=== PATIENT | female | born 1950 | race Asian ===

== ENCOUNTER 2017-05-31 19:53 | Inpatient (IN) | payer OTHER, MEDICARE ==
[~2017-05-31] VITALS: Ht 162.6 cm; Wt 53.5 kg
[2017-05-31] MEDS ORDERED: D-ME118S12 GT (20:11)
[2017-05-31] MEDS ORDERED: LACT10SO GT (20:11)
[2017-05-31] MEDS ORDERED: FOLI1TAB16 GT (20:11)
[2017-05-31] MEDS ORDERED: PRED5TAB48 GT (20:11)
[2017-05-31] MEDS ORDERED: MIDO10TA GT (20:11)
[2017-05-31] MEDS ORDERED: SILD100T GT (20:11)
[2017-05-31] MEDS ORDERED: LACT1TAB20 GT (20:11)
[2017-05-31] MEDS ORDERED: ONDA4TAB10 GT (20:11)
[2017-05-31] MEDS ORDERED: LEVO150T8 GT (20:11)
[2017-05-31] MEDS ORDERED: ACET325T80 GT (20:11)
[2017-05-31] MEDS ORDERED: VALA100026 GT (20:11)
[2017-05-31] MEDS ORDERED: METO-295 GT (20:11)
[2017-05-31] MEDS ORDERED: MIDO5TAB GT (20:11)
[2017-05-31 20:40] LABS: BASOPHILS # (AUTO) 0.3 /CMM (0.0-0.2); BASOPHILS % (AUTO) 1.8 % (0.0-2.0); EOSINOPHILS % (AUTO) 0.3 % (0.0-6.0); HEMATOCRIT 22 % (33-45); HEMOGLOBIN 7.1 g/dL (11.5-14.8); LYMPHOCYTES # (AUTO) 1.1 /CMM (0.8-4.8); LYMPHOCYTES % (AUTO) 7.2 % (20.0-44.0); MEAN CORPUSCULAR HEMOGLOBIN 31 PG (26.0-33.0); MEAN CORPUSCULAR HGB CONC 33 g/dl (31.0-36.0); MEAN CORPUSCULAR VOLUME 95 fL (82-100); MONOCYTES # (AUTO) 1.9 /CMM (0.1-1.30); MONOCYTES % (AUTO) 11.9 % (2.0-12.0); NEUTROPHILS # (AUTO) 12.6 /CMM (1.8-8.9); NEUTROPHILS % (AUTO) 78.8 % (43.0-81.0); PLATELET COUNT (AUTO) 242 /CMM (150-450); RDW COEFFICIENT OF VARIATION 19.4 (11.5-15.0); WHITE BLOOD COUNT (AUTO) 15.9 K/uL (4.3-11.0)
[2017-05-31 21:12] LABS: TROPONIN I 0.06 ng/mL (0.00-0.056)
[2017-05-31 21:27] LABS: CALCIUM, SERUM 9.1 mg/dL (8.5-10.1); CREATININE 2.5 mg/dL (0.6-1.3); POTASSIUM 4.8 mmol/L (3.5-5.1)
[2017-05-31 21:33] LABS: ALBUMIN 3.1 g/dL (3.4-5.0); BILIRUBIN,DIRECT 0.1 mg/dL (0.0-0.2); BILIRUBIN,TOTAL 0.3 mg/dL (0.2-1.0); TOTAL PROTEIN, SERUM 7.9 g/dL (6.4-8.2)
[2017-05-31 21:59] LABS: INR 1.08 (0.87-1.13)
[2017-05-31] MEDS ORDERED: ZOLPIDEM TARTRATE 5 MG TABLET PO PRN (22:30)
[2017-05-31] MEDS ORDERED: Z GUARD REMEDY 2 OZ OINT TP PRN (22:30)
[2017-05-31] MEDS ORDERED: MAGNESIUM HYDROXIDE 30 ML UDC PO PRN (22:30)
[2017-05-31] MEDS ORDERED: HYDROCODONE/APAP 5/325MG 1 EACH TABLET PO PRN (22:30)
[2017-05-31] MEDS ORDERED: ONDANSETRON HCL/PF 4 MG/2 ML VIAL IVP PRN (22:30)
[2017-05-31] MEDS ORDERED: MAG HYDROX/AL HYDROX/SIMETH 30 ML UDC PO PRN (22:30)
[2017-05-31] MEDS ORDERED: LACT-96 GT (23:29)
[2017-05-31] MEDS ORDERED: INSU100I4 SQ (23:29)
[2017-05-31 23:47] VITALS: BP 105/63
[2017-06-01] VITALS (11 sets, daily range): BP systolic 91–118; BP diastolic 51–57
[2017-06-01] MEDS: BLOOD SUGAR DIAGNOSTIC 1 EACH STRIP IN SCH ×4 (00:20→18:13)
[2017-06-01] MEDS: METOCLOPRAMIDE HCL 10 MG TABLET GT SCH ×4 (00:23→21:32)
[2017-06-01] MEDS ORDERED: DEXTROSE 50%-WATER 50 ML DISP.SYRIN IV PRN (00:30)
[2017-06-01] MEDS: MIDODRINE HCL (5MG) 5 MG TABLET GT SCH ×3 (05:24→21:32)
[2017-06-01] MEDS ORDERED: BLOOD SUGAR DIAGNOSTIC 1 EACH STRIP IN SCH (06:00)
[2017-06-01 06:33] LABS: BASOPHILS % (AUTO) 0.2 % (0.0-2.0); EOSINOPHILS # (AUTO) 0.1 /CMM (0.0-0.7); EOSINOPHILS % (AUTO) 0.4 % (0.0-6.0); HEMATOCRIT 24 % (33-45); HEMOGLOBIN 7.7 g/dL (11.5-14.8); LYMPHOCYTES # (AUTO) 2.6 /CMM (0.8-4.8); LYMPHOCYTES % (AUTO) 15.3 % (20.0-44.0); MEAN CORPUSCULAR HEMOGLOBIN 31 PG (26.0-33.0); MEAN CORPUSCULAR HGB CONC 33 g/dl (31.0-36.0); MEAN CORPUSCULAR VOLUME 95 fL (82-100); MONOCYTES % (AUTO) 12.1 % (2.0-12.0); PLATELET COUNT (AUTO) 227 /CMM (150-450); RDW COEFFICIENT OF VARIATION 20.2 (11.5-15.0); WHITE BLOOD COUNT (AUTO) 16.6 K/uL (4.3-11.0)
[2017-06-01 06:51] LABS: CALCIUM, SERUM 8.9 mg/dL (8.5-10.1); MAGNESIUM 2.5 mg/dL (1.8-2.4); PHOSPHORUS 7.2 mg/dL (2.5-4.9)
[2017-06-01 06:55] LABS: THYROID STIMULATING HORMONE 3.872 uIU/mL (0.358-3.74)
[2017-06-01 07:18] LABS: LYMPHOCYTES % (MANUAL) 4 % (16-48); MONOCYTES % (MANUAL) 18 % (0-11.0); NEUTROPHILS % (MANUAL) 78 (42-76)
[2017-06-01] MEDS ORDERED: LEVOTHYROXINE SODIUM 150 MCG TABLET GT SCH (09:00)
[2017-06-01] MEDS: predniSONE 5 MG TABLET PO SCH ×2 (09:20→21:33)
[2017-06-01] MEDS: LEVOTHYROXINE SODIUM 75 MCG TABLET GT SCH ×2 (09:20→21:32)
[2017-06-01] MEDS: VALACYCLOVIR HCL 500 MG TABLET PO SCH (09:21)
[2017-06-01] MEDS: SILDENAFIL CITRATE 20 MG TABLET PO SCH (09:21)
[2017-06-01] MEDS: FOLIC ACID 1 MG TABLET GT SCH (09:21)
[2017-06-01 13:43] LABS: RETICULOCYTE COUNT 3.6 % (0.6-2.5)
[2017-06-01] MEDS ORDERED: CEFTRIAXONE 1 G in IV D5W 50 ML IV SCH (16:30)
[2017-06-01 16:54] LABS: OCCULT BLOOD STOOL POSITIVE (NEGATIVE)
[2017-06-01] MEDS: PANTOPRAZOLE 40 MG VIAL IV SCH (18:13)
[2017-06-01] MEDS: METRONIDAZOLE 500MG/ NS 100ML 500 MG in PREMIX 1 EA IV SCH (18:49)
[2017-06-02] VITALS (7 sets, daily range): BP systolic 99–139; BP diastolic 45–70
[2017-06-02] MEDS: METRONIDAZOLE 500MG/ NS 100ML 500 MG in PREMIX 1 EA IV SCH ×2 (00:36→05:03)
[2017-06-02] MEDS: BLOOD SUGAR DIAGNOSTIC 1 EACH STRIP IN SCH ×4 (00:39→17:40)
[2017-06-02] MEDS: INSULIN REGULAR, HUMAN 100 UNIT/ML 3 ML VIAL SQ PRN ×2 (00:39→05:02)
[2017-06-02] MEDS: METOCLOPRAMIDE HCL 10 MG TABLET GT SCH ×3 (05:01→21:35)
[2017-06-02] MEDS: MIDODRINE HCL (5MG) 5 MG TABLET GT SCH ×3 (05:01→21:35)
[2017-06-02 07:47] LABS: TROPONIN I 0.066 ng/mL (0.00-0.056)
[2017-06-02 07:54] LABS: BILIRUBIN,TOTAL 0.4 mg/dL (0.2-1.0); CALCIUM, SERUM 8.7 mg/dL (8.5-10.1); MAGNESIUM 2.6 mg/dL (1.8-2.4); TOTAL PROTEIN, SERUM 7.7 g/dL (6.4-8.2)
[2017-06-02 08:03] LABS: BASOPHILS % (AUTO) 0.2 % (0.0-2.0); EOSINOPHILS % (AUTO) 0.1 % (0.0-6.0); HEMATOCRIT 22 % (33-45); HEMOGLOBIN 7.1 g/dL (11.5-14.8); LYMPHOCYTES # (AUTO) 1.5 /CMM (0.8-4.8); LYMPHOCYTES % (AUTO) 8.6 % (20.0-44.0); MEAN CORPUSCULAR HEMOGLOBIN 31 PG (26.0-33.0); MEAN CORPUSCULAR HGB CONC 32 g/dl (31.0-36.0); MEAN CORPUSCULAR VOLUME 95 fL (82-100); MONOCYTES # (AUTO) 1.6 /CMM (0.1-1.30); MONOCYTES % (AUTO) 9.3 % (2.0-12.0); NEUTROPHILS # (AUTO) 13.9 /CMM (1.8-8.9); NEUTROPHILS % (AUTO) 81.8 % (43.0-81.0); PLATELET COUNT (AUTO) 233 /CMM (150-450); RDW COEFFICIENT OF VARIATION 19.4 (11.5-15.0); RED BLOOD CELL COUNT(AUTO) 2.33 MIL/uL (4.0-5.2)
[2017-06-02 08:07] LABS: POTASSIUM 6.3 mmol/L (3.5-5.1)
[2017-06-02 08:08] LABS: PHOSPHORUS 9.4 mg/dL (2.5-4.9)
[2017-06-02] MEDS: VALACYCLOVIR HCL 500 MG TABLET PO SCH (08:27)
[2017-06-02] MEDS: FOLIC ACID 1 MG TABLET GT SCH (08:28)
[2017-06-02] MEDS: SILDENAFIL CITRATE 20 MG TABLET PO SCH (08:28)
[2017-06-02] MEDS: LEVOTHYROXINE SODIUM 75 MCG TABLET GT SCH ×2 (08:28→21:35)
[2017-06-02] MEDS: PANTOPRAZOLE 40 MG VIAL IV SCH ×2 (08:28→17:26)
[2017-06-02] MEDS: predniSONE 5 MG TABLET PO SCH ×2 (08:28→21:35)
[2017-06-02] MEDS ORDERED: SODIUM POLYSTYRENE SULFONATE 15 G/60 ML BOTTLE GT ONE (08:30)
[2017-06-02 10:01] LABS: LYMPHOCYTES % (MANUAL) 3 % (16-48); MONOCYTES % (MANUAL) 9 % (0-11.0); NEUTROPHILS % (MANUAL) 88 (42-76)
[2017-06-02] MEDS ORDERED: FEE PK DOSING 1 MIN EA MC ONE (11:40)
[2017-06-02] MEDS: MEROPENEM 500 MG in IV NS 0.9% 50 ML IV SCH (12:39)
[2017-06-02] MEDS ORDERED: VANCOMYCIN 1 GM in IV NS 0.9% 250 ML IV ONE (14:00)
[2017-06-02 22:03] LABS: ABG BASE EXCESS 2.6 mmol/L; ABG OXYGEN SATURATION 98.8 % (92.0-98.5); ABG PCO2 84.5 mmHg (35.0-45.0); ABG PH 7.194 (7.350-7.450); ABG PO2 201.4 mmHg (75.0-100.0); AaDO2 427.1 mmHg; COHb 0.1 % (0.5-1.5); O2Hb 97.7 % (94.0-97.0); SITE, ABG Right Radial; VENT MODE, BG NRB MASK
[2017-06-03] VITALS (13 sets, daily range): BP systolic 93–114; BP diastolic 42–63
[2017-06-03] MEDS: MEROPENEM 500 MG in IV NS 0.9% 50 ML IV SCH ×2 (00:35→12:14)
[2017-06-03] MEDS: BLOOD SUGAR DIAGNOSTIC 1 EACH STRIP IN SCH ×4 (00:35→17:25)
[2017-06-03] MEDS: METOCLOPRAMIDE HCL 10 MG TABLET GT SCH ×3 (05:21→20:24)
[2017-06-03] MEDS: MIDODRINE HCL (5MG) 5 MG TABLET GT SCH ×3 (05:25→20:25)
[2017-06-03 07:21] LABS: CREATININE 3.2 mg/dL (0.6-1.3); POTASSIUM 3.6 mmol/L (3.5-5.1)
[2017-06-03] MEDS: LEVOTHYROXINE SODIUM 75 MCG TABLET GT SCH ×2 (08:14→20:25)
[2017-06-03] MEDS: predniSONE 5 MG TABLET PO SCH ×2 (08:14→20:24)
[2017-06-03] MEDS: SILDENAFIL CITRATE 20 MG TABLET PO SCH (08:14)
[2017-06-03] MEDS: VALACYCLOVIR HCL 500 MG TABLET PO SCH (08:14)
[2017-06-03] MEDS: FOLIC ACID 1 MG TABLET GT SCH (08:14)
[2017-06-03] MEDS: PANTOPRAZOLE 40 MG VIAL IV SCH ×2 (08:16→16:33)
[2017-06-03 09:36] LABS: ABG BASE EXCESS 4.4 mmol/L; ABG OXYGEN SATURATION 98.7 % (92.0-98.5); ABG PCO2 51.4 mmHg (35.0-45.0); ABG PH 7.383 (7.350-7.450); ABG PO2 165.2 mmHg (75.0-100.0); AaDO2 60.9 mmHg; COHb 0.5 % (0.5-1.5); MetHb 0.6 % (0.0-1.5); O2Hb 97.6 % (94.0-97.0); PEEP,BG 0 cm H2O; SITE, ABG Right Radial; VENT MODE, BG AC 10 500 +0 40%; VT, ABG 500 mL
[2017-06-03 11:01] LABS: BASOPHILS % (AUTO) 0.1 % (0.0-2.0); HEMATOCRIT 22 % (33-45); LYMPHOCYTES # (AUTO) 0.8 /CMM (0.8-4.8); LYMPHOCYTES % (AUTO) 4.1 % (20.0-44.0); MEAN CORPUSCULAR HEMOGLOBIN 31 PG (26.0-33.0); MEAN CORPUSCULAR HGB CONC 32 g/dl (31.0-36.0); MEAN CORPUSCULAR VOLUME 95 fL (82-100); MONOCYTES # (AUTO) 1.2 /CMM (0.1-1.30); MONOCYTES % (AUTO) 6.2 % (2.0-12.0); NEUTROPHILS # (AUTO) 16.9 /CMM (1.8-8.9); NEUTROPHILS % (AUTO) 89.6 % (43.0-81.0); PLATELET COUNT (AUTO) 199 /CMM (150-450); RDW COEFFICIENT OF VARIATION 20.3 (11.5-15.0); RED BLOOD CELL COUNT(AUTO) 2.27 MIL/uL (4.0-5.2); WHITE BLOOD COUNT (AUTO) 18.9 K/uL (4.3-11.0)
[2017-06-03 11:37] LABS: HEMOGLOBIN 6.9 g/dL (11.5-14.8)
[2017-06-03 15:11] LABS: BAND % (MANUAL) 6 % (0.0-5.0); LYMPHOCYTES % (MANUAL) 12 % (16-48); MONOCYTES % (MANUAL) 6 % (0-11.0); NEUTROPHILS % (MANUAL) 76 (42-76)
[2017-06-04] VITALS: BP 96/43
[2017-06-04] MEDS: MEROPENEM 500 MG in IV NS 0.9% 50 ML IV SCH ×2 (01:43→13:01)
[2017-06-04 04:00] VITALS: BP 101/58
[2017-06-04] MEDS: METOCLOPRAMIDE HCL 10 MG TABLET GT SCH ×2 (05:46→13:01)
[2017-06-04] MEDS: INSULIN REGULAR, HUMAN 100 UNIT/ML 3 ML VIAL SQ PRN (05:47)
[2017-06-04] MEDS: MIDODRINE HCL (5MG) 5 MG TABLET GT SCH ×3 (05:47→21:21)
[2017-06-04] MEDS: BLOOD SUGAR DIAGNOSTIC 1 EACH STRIP IN SCH ×4 (05:47→16:27)
[2017-06-04 07:32] LABS: HEMATOCRIT 24 % (33-45); HEMOGLOBIN 7.8 g/dL (11.5-14.8); LYMPHOCYTES % (AUTO) 7.1 % (20.0-44.0); MEAN CORPUSCULAR HEMOGLOBIN 31 PG (26.0-33.0); MEAN CORPUSCULAR HGB CONC 33 g/dl (31.0-36.0); MEAN CORPUSCULAR VOLUME 93 fL (82-100); MONOCYTES # (AUTO) 1.2 /CMM (0.1-1.30); MONOCYTES % (AUTO) 8.8 % (2.0-12.0); NEUTROPHILS # (AUTO) 11.5 /CMM (1.8-8.9); NEUTROPHILS % (AUTO) 84.1 % (43.0-81.0); PLATELET COUNT (AUTO) 181 /CMM (150-450); RDW COEFFICIENT OF VARIATION 20.2 (11.5-15.0); RED BLOOD CELL COUNT(AUTO) 2.55 MIL/uL (4.0-5.2); WHITE BLOOD COUNT (AUTO) 13.7 K/uL (4.3-11.0)
[2017-06-04 07:54] LABS: CALCIUM, SERUM 7.2 mg/dL (8.5-10.1); POTASSIUM 3.3 mmol/L (3.5-5.1)
[2017-06-04 08:00] VITALS: BP 107/61
[2017-06-04] MEDS: PANTOPRAZOLE 40 MG VIAL IV SCH ×2 (08:24→16:24)
[2017-06-04] MEDS: SILDENAFIL CITRATE 20 MG TABLET PO SCH (08:25)
[2017-06-04] MEDS: predniSONE 5 MG TABLET PO SCH ×2 (08:25→21:22)
[2017-06-04] MEDS: LEVOTHYROXINE SODIUM 75 MCG TABLET GT SCH ×2 (08:25→21:22)
[2017-06-04] MEDS: VALACYCLOVIR HCL 500 MG TABLET PO SCH (08:25)
[2017-06-04] MEDS: FOLIC ACID 1 MG TABLET GT SCH (08:25)
[2017-06-04] MEDS: POTASSIUM CL. PREMIX PERIPHER. 50 ML IV SCH ×2 (10:13→11:27)
[2017-06-04] MEDS ORDERED: METOCLOPRAMIDE HCL 10 MG/2 ML VIAL IV SCH (10:30)
[2017-06-04 12:00] VITALS: BP 100/50
[2017-06-04] MEDS: METOCLOPRAMIDE HCL 10 MG/2 ML VIAL IV SCH ×2 (14:30→20:30)
[2017-06-04] MEDS ORDERED: GLYTROL 1,000 ML BAG GT PRN (15:00)
[2017-06-04 16:00] VITALS: BP 100/48
[2017-06-04 20:00] VITALS: BP 106/49
[2017-06-05] VITALS (7 sets, daily range): BP systolic 94–115; BP diastolic 44–65
[2017-06-05] MEDS: INSULIN REGULAR, HUMAN 100 UNIT/ML 3 ML VIAL SQ PRN ×2 (00:17→06:34)
[2017-06-05] MEDS: MEROPENEM 500 MG in IV NS 0.9% 50 ML IV SCH ×2 (00:39→13:21)
[2017-06-05] MEDS: METOCLOPRAMIDE HCL 10 MG/2 ML VIAL IV SCH ×4 (02:08→22:00)
[2017-06-05] MEDS: MIDODRINE HCL (5MG) 5 MG TABLET GT SCH ×3 (04:29→22:01)
[2017-06-05] MEDS: BLOOD SUGAR DIAGNOSTIC 1 EACH STRIP IN SCH ×4 (06:00→17:19)
[2017-06-05 07:14] LABS: EOSINOPHILS % (AUTO) 0.2 % (0.0-6.0); HEMATOCRIT 25 % (33-45); HEMOGLOBIN 8.1 g/dL (11.5-14.8); LYMPHOCYTES # (AUTO) 0.9 /CMM (0.8-4.8); LYMPHOCYTES % (AUTO) 7.5 % (20.0-44.0); MEAN CORPUSCULAR HEMOGLOBIN 31 PG (26.0-33.0); MEAN CORPUSCULAR HGB CONC 33 g/dl (31.0-36.0); MEAN CORPUSCULAR VOLUME 94 fL (82-100); MONOCYTES # (AUTO) 1.1 /CMM (0.1-1.30); MONOCYTES % (AUTO) 8.7 % (2.0-12.0); NEUTROPHILS # (AUTO) 10.2 /CMM (1.8-8.9); NEUTROPHILS % (AUTO) 83.6 % (43.0-81.0); PLATELET COUNT (AUTO) 165 /CMM (150-450); RED BLOOD CELL COUNT(AUTO) 2.61 MIL/uL (4.0-5.2); WHITE BLOOD COUNT (AUTO) 12.3 K/uL (4.3-11.0)
[2017-06-05 07:24] LABS: INR 1.47 (0.87-1.13)
[2017-06-05 07:45] LABS: CALCIUM, SERUM 8.4 mg/dL (8.5-10.1); CREATININE 2.5 mg/dL (0.6-1.3); MAGNESIUM 2.2 mg/dL (1.8-2.4); PHOSPHORUS 4.8 mg/dL (2.5-4.9); POTASSIUM 4.5 mmol/L (3.5-5.1)
[2017-06-05] MEDS: VALACYCLOVIR HCL 500 MG TABLET PO SCH (08:13)
[2017-06-05] MEDS: PANTOPRAZOLE 40 MG VIAL IV SCH ×2 (08:13→17:16)
[2017-06-05] MEDS: LEVOTHYROXINE SODIUM 75 MCG TABLET GT SCH ×2 (08:13→22:01)
[2017-06-05] MEDS: FOLIC ACID 1 MG TABLET GT SCH (08:13)
[2017-06-05] MEDS: SILDENAFIL CITRATE 20 MG TABLET PO SCH (08:13)
[2017-06-05] MEDS: predniSONE 5 MG TABLET PO SCH ×2 (08:13→22:01)
[2017-06-05] MEDS: RENAL NOVASOURCE 1,000 ML BOTTLE GT PRN (13:22)
[2017-06-06] VITALS: BP 113/61
[2017-06-06] MEDS: MEROPENEM 500 MG in IV NS 0.9% 50 ML IV SCH ×2 (00:57→12:03)
[2017-06-06] MEDS: BLOOD SUGAR DIAGNOSTIC 1 EACH STRIP IN SCH ×5 (00:57→23:50)
[2017-06-06] MEDS: METOCLOPRAMIDE HCL 10 MG/2 ML VIAL IV SCH ×4 (03:42→23:50)
[2017-06-06 04:00] VITALS: BP 105/59
[2017-06-06] MEDS: MIDODRINE HCL (5MG) 5 MG TABLET GT SCH ×3 (05:55→20:45)
[2017-06-06] MEDS: INSULIN REGULAR, HUMAN 100 UNIT/ML 3 ML VIAL SQ PRN ×4 (05:59→23:58)
[2017-06-06 08:00] VITALS: BP 111/61
[2017-06-06 08:22] LABS: BASOPHILS % (AUTO) 0.1 % (0.0-2.0); EOSINOPHILS % (AUTO) 0.3 % (0.0-6.0); HEMATOCRIT 24 % (33-45); HEMOGLOBIN 7.9 g/dL (11.5-14.8); LYMPHOCYTES # (AUTO) 1.2 /CMM (0.8-4.8); LYMPHOCYTES % (AUTO) 8.6 % (20.0-44.0); MEAN CORPUSCULAR HEMOGLOBIN 31 PG (26.0-33.0); MEAN CORPUSCULAR HGB CONC 33 g/dl (31.0-36.0); MEAN CORPUSCULAR VOLUME 94 fL (82-100); MONOCYTES # (AUTO) 1.3 /CMM (0.1-1.30); MONOCYTES % (AUTO) 9.3 % (2.0-12.0); NEUTROPHILS # (AUTO) 11.2 /CMM (1.8-8.9); NEUTROPHILS % (AUTO) 81.7 % (43.0-81.0); PLATELET COUNT (AUTO) 135 /CMM (150-450); RDW COEFFICIENT OF VARIATION 20.7 (11.5-15.0); RED BLOOD CELL COUNT(AUTO) 2.57 MIL/uL (4.0-5.2); WHITE BLOOD COUNT (AUTO) 13.7 K/uL (4.3-11.0)
[2017-06-06 08:57] LABS: CREATININE 3.5 mg/dL (0.6-1.3); PHOSPHORUS 5.6 mg/dL (2.5-4.9); POTASSIUM 4.4 mmol/L (3.5-5.1)
[2017-06-06] MEDS: PANTOPRAZOLE 40 MG VIAL IV SCH ×2 (10:05→17:17)
[2017-06-06] MEDS: SILDENAFIL CITRATE 20 MG TABLET PO SCH (10:06)
[2017-06-06] MEDS: FOLIC ACID 1 MG TABLET GT SCH (10:06)
[2017-06-06] MEDS: LEVOTHYROXINE SODIUM 75 MCG TABLET GT SCH ×2 (10:06→20:45)
[2017-06-06] MEDS: predniSONE 5 MG TABLET PO SCH ×2 (10:06→20:45)
[2017-06-06] MEDS: VALACYCLOVIR HCL 500 MG TABLET PO SCH (10:06)
[2017-06-06] MEDS: VANCOMYCIN 500 MG in IV NS 0.9% 100 ML IV PRN (10:38)
[2017-06-06 11:35] LABS: ABG BASE EXCESS 2.1 mmol/L; ABG OXYGEN SATURATION 97.1 % (92.0-98.5); ABG PCO2 46.5 mmHg (35.0-45.0); ABG PO2 107.5 mmHg (75.0-100.0); AaDO2 51.8 mmHg; COHb 0.3 % (0.5-1.5); MetHb 0.5 % (0.0-1.5); O2Hb 96.3 % (94.0-97.0); SITE, ABG Left Radial; VENT MODE, BG CPAP PS 12
[2017-06-06 12:00] VITALS: BP 113/58
[2017-06-06] MEDS ORDERED: MAGNESIUM CITRATE 296 ML BOTTLE PO ONE ×2 (15:00→17:30)
[2017-06-06] MEDS ORDERED: NA PHOS,M-B/NA PHOS,DI-BA 1 EA ENEMA RC PRN (15:00)
[2017-06-06 16:00] VITALS: BP 103/50
[2017-06-06] MEDS ORDERED: PEG 3350/NA SULF,BICARB,CL/KCL 4,000 ML BOTTLE PO ONE (16:00)
[2017-06-06 20:00] VITALS: BP 97/49
[2017-06-07] VITALS (7 sets, daily range): BP systolic 107–138; BP diastolic 59–70
[2017-06-07] MEDS: MEROPENEM 500 MG in IV NS 0.9% 50 ML IV SCH ×2 (00:02→12:46)
[2017-06-07] MEDS: MIDODRINE HCL (5MG) 5 MG TABLET GT SCH ×3 (05:00→20:39)
[2017-06-07] MEDS: BLOOD SUGAR DIAGNOSTIC 1 EACH STRIP IN SCH ×4 (06:43→23:05)
[2017-06-07] MEDS: RENAL NOVASOURCE 1,000 ML BOTTLE GT PRN (06:44)
[2017-06-07 08:13] LABS: EOSINOPHILS # (AUTO) 0.1 /CMM (0.0-0.7); EOSINOPHILS % (AUTO) 0.4 % (0.0-6.0); HEMATOCRIT 27 % (33-45); HEMOGLOBIN 8.9 g/dL (11.5-14.8); LYMPHOCYTES % (AUTO) 5.9 % (20.0-44.0); MEAN CORPUSCULAR HEMOGLOBIN 32 PG (26.0-33.0); MEAN CORPUSCULAR HGB CONC 33 g/dl (31.0-36.0); MEAN CORPUSCULAR VOLUME 96 fL (82-100); MONOCYTES # (AUTO) 1.3 /CMM (0.1-1.30); MONOCYTES % (AUTO) 7.3 % (2.0-12.0); NEUTROPHILS # (AUTO) 14.7 /CMM (1.8-8.9); NEUTROPHILS % (AUTO) 86.4 % (43.0-81.0); PLATELET COUNT (AUTO) 112 /CMM (150-450); RDW COEFFICIENT OF VARIATION 21.6 (11.5-15.0); RED BLOOD CELL COUNT(AUTO) 2.84 MIL/uL (4.0-5.2); WHITE BLOOD COUNT (AUTO) 17.1 K/uL (4.3-11.0)
[2017-06-07 08:31] LABS: CALCIUM, SERUM 8.1 mg/dL (8.5-10.1); CREATININE 2.8 mg/dL (0.6-1.3); PHOSPHORUS 5.2 mg/dL (2.5-4.9); POTASSIUM 4.3 mmol/L (3.5-5.1)
[2017-06-07] MEDS: METOCLOPRAMIDE HCL 10 MG/2 ML VIAL IV SCH (08:49)
[2017-06-07] MEDS: PANTOPRAZOLE 40 MG VIAL IV SCH ×2 (08:50→16:43)
[2017-06-07] MEDS: VALACYCLOVIR HCL 500 MG TABLET PO SCH (08:50)
[2017-06-07] MEDS: FOLIC ACID 1 MG TABLET GT SCH (08:50)
[2017-06-07] MEDS: SILDENAFIL CITRATE 20 MG TABLET PO SCH (08:50)
[2017-06-07] MEDS: LEVOTHYROXINE SODIUM 75 MCG TABLET GT SCH ×2 (08:50→20:39)
[2017-06-07] MEDS: predniSONE 5 MG TABLET PO SCH ×2 (08:50→20:39)
[2017-06-07 09:56] LABS: ABG BASE EXCESS 3.3 mmol/L; ABG PCO2 58.5 mmHg (35.0-45.0); ABG PH 7.329 (7.350-7.450); AaDO2 82.5 mmHg; COHb 0.5 % (0.5-1.5); MetHb 0.7 % (0.0-1.5); O2Hb 95.8 % (94.0-97.0); SITE, ABG Left Radial; VENT MODE, BG COOL AERO 35%
[2017-06-07] MEDS: INSULIN REGULAR, HUMAN 100 UNIT/ML 3 ML VIAL SQ PRN ×2 (11:49→17:39)
[2017-06-07] MEDS ORDERED: EPOETIN ALFA (10,000 UNIT) 10,000 UNIT/ML VIAL IV ONE (13:00)
[2017-06-07] MEDS: METOCLOPRAMIDE HCL 10 MG/10 ML UDC GT SCH (17:44)
[2017-06-08] VITALS (8 sets, daily range): BP systolic 92–144; BP diastolic 47–67
[2017-06-08] MEDS: MEROPENEM 500 MG in IV NS 0.9% 50 ML IV SCH ×2 (00:03→12:35)
[2017-06-08] MEDS: METOCLOPRAMIDE HCL 10 MG/10 ML UDC GT SCH ×3 (00:06→16:57)
[2017-06-08] MEDS: MIDODRINE HCL (5MG) 5 MG TABLET GT SCH ×3 (04:02→20:33)
[2017-06-08] MEDS: RENAL NOVASOURCE 1,000 ML BOTTLE GT PRN (04:04)
[2017-06-08 07:35] LABS: CALCIUM, SERUM 8.2 mg/dL (8.5-10.1); CREATININE 3.6 mg/dL (0.6-1.3); PHOSPHORUS 5.8 mg/dL (2.5-4.9); POTASSIUM 4.6 mmol/L (3.5-5.1)
[2017-06-08] MEDS: PANTOPRAZOLE 40 MG VIAL IV SCH ×2 (09:44→16:57)
[2017-06-08] MEDS: LEVOTHYROXINE SODIUM 75 MCG TABLET GT SCH ×2 (09:44→20:33)
[2017-06-08] MEDS: FOLIC ACID 1 MG TABLET GT SCH (09:44)
[2017-06-08] MEDS: VALACYCLOVIR HCL 500 MG TABLET PO SCH (09:44)
[2017-06-08] MEDS: predniSONE 5 MG TABLET PO SCH ×2 (09:44→20:33)
[2017-06-08] MEDS: BLOOD SUGAR DIAGNOSTIC 1 EACH STRIP IN SCH ×4 (09:45→23:49)
[2017-06-08] MEDS: SILDENAFIL CITRATE 20 MG TABLET PO SCH (09:48)
[2017-06-08] MEDS: INSULIN REGULAR, HUMAN 100 UNIT/ML 3 ML VIAL SQ PRN ×3 (09:53→23:59)
[2017-06-08 10:07] LABS: EOSINOPHILS % (AUTO) 0.2 % (0.0-6.0); HEMATOCRIT 27 % (33-45); HEMOGLOBIN 8.7 g/dL (11.5-14.8); LYMPHOCYTES # (AUTO) 0.9 /CMM (0.8-4.8); LYMPHOCYTES % (AUTO) 4.9 % (20.0-44.0); MEAN CORPUSCULAR HEMOGLOBIN 31 PG (26.0-33.0); MEAN CORPUSCULAR HGB CONC 33 g/dl (31.0-36.0); MEAN CORPUSCULAR VOLUME 96 fL (82-100); MONOCYTES # (AUTO) 1.2 /CMM (0.1-1.30); MONOCYTES % (AUTO) 6.5 % (2.0-12.0); NEUTROPHILS # (AUTO) 16.8 /CMM (1.8-8.9); NEUTROPHILS % (AUTO) 88.4 % (43.0-81.0); PLATELET COUNT (AUTO) 109 /CMM (150-450); RDW COEFFICIENT OF VARIATION 21.8 (11.5-15.0); RED BLOOD CELL COUNT(AUTO) 2.78 MIL/uL (4.0-5.2)
[2017-06-08 11:23] LABS: ABG BASE EXCESS 3.2 mmol/L; ABG OXYGEN SATURATION 98.3 % (92.0-98.5); ABG PCO2 52.6 mmHg (35.0-45.0); ABG PH 7.363 (7.350-7.450); ABG PO2 142.5 mmHg (75.0-100.0); AaDO2 45.9 mmHg; COHb 0.3 % (0.5-1.5); MetHb 0.7 % (0.0-1.5); O2Hb 97.3 % (94.0-97.0); SITE, ABG Right Radial; VENT MODE, BG 35% COOL AEROSOL
[2017-06-08] MEDS: ACETAMINOPHEN 325 MG TABLET PO PRN (20:33)
[2017-06-09] VITALS: BP 113/59
[2017-06-09] MEDS: MEROPENEM 500 MG in IV NS 0.9% 50 ML IV SCH ×2 (00:02→12:08)
[2017-06-09] MEDS: METOCLOPRAMIDE HCL 10 MG/10 ML UDC GT SCH ×3 (00:04→17:07)
[2017-06-09 04:00] VITALS: BP 121/60
[2017-06-09] MEDS: BLOOD SUGAR DIAGNOSTIC 1 EACH STRIP IN SCH ×3 (05:21→17:11)
[2017-06-09] MEDS: RENAL NOVASOURCE 1,000 ML BOTTLE GT PRN (05:22)
[2017-06-09] MEDS: MIDODRINE HCL (5MG) 5 MG TABLET GT SCH ×3 (05:22→21:20)
[2017-06-09 08:00] VITALS: BP 134/64
[2017-06-09] MEDS: LEVOTHYROXINE SODIUM 75 MCG TABLET GT SCH ×2 (08:03→21:20)
[2017-06-09] MEDS: PANTOPRAZOLE 40 MG VIAL IV SCH ×2 (08:03→17:07)
[2017-06-09] MEDS: VALACYCLOVIR HCL 500 MG TABLET PO SCH (08:03)
[2017-06-09] MEDS: predniSONE 5 MG TABLET PO SCH ×2 (08:04→21:20)
[2017-06-09] MEDS: SILDENAFIL CITRATE 20 MG TABLET PO SCH (08:04)
[2017-06-09] MEDS: FOLIC ACID 1 MG TABLET GT SCH (08:04)
[2017-06-09 10:20] LABS: BASOPHILS % (AUTO) 0.1 % (0.0-2.0); EOSINOPHILS % (AUTO) 0.3 % (0.0-6.0); HEMATOCRIT 26 % (33-45); HEMOGLOBIN 8.5 g/dL (11.5-14.8); LYMPHOCYTES % (AUTO) 5.7 % (20.0-44.0); MEAN CORPUSCULAR HEMOGLOBIN 31 PG (26.0-33.0); MEAN CORPUSCULAR HGB CONC 32 g/dl (31.0-36.0); MEAN CORPUSCULAR VOLUME 96 fL (82-100); MONOCYTES # (AUTO) 1.5 /CMM (0.1-1.30); MONOCYTES % (AUTO) 8.4 % (2.0-12.0); NEUTROPHILS % (AUTO) 85.5 % (43.0-81.0); PLATELET COUNT (AUTO) 95 /CMM (150-450); RDW COEFFICIENT OF VARIATION 21.8 (11.5-15.0); RED BLOOD CELL COUNT(AUTO) 2.76 MIL/uL (4.0-5.2); WHITE BLOOD COUNT (AUTO) 17.6 K/uL (4.3-11.0)
[2017-06-09 12:00] VITALS: BP 123/47
[2017-06-09] MEDS: INSULIN REGULAR, HUMAN 100 UNIT/ML 3 ML VIAL SQ PRN (12:11)
[2017-06-09 13:02] LABS: EOSINOPHILS % (MANUAL) 3 % (0-4); LYMPHOCYTES % (MANUAL) 8 % (16-48); MONOCYTES % (MANUAL) 6 % (0-11.0); NEUTROPHILS % (MANUAL) 83 (42-76)
[2017-06-09] MEDS ORDERED: NA PHOS,M-B/NA PHOS,DI-BA 1 EA ENEMA RC PRN (15:30)
[2017-06-09] MEDS ORDERED: PEG 3350/NA SULF,BICARB,CL/KCL 4,000 ML BOTTLE PO ONE (15:30)
[2017-06-09] MEDS ORDERED: MAGNESIUM CITRATE 296 ML BOTTLE PO ONE (15:30)
[2017-06-09 16:00] VITALS: BP 124/51
[2017-06-09 20:00] VITALS: BP 118/60
[2017-06-10] VITALS (7 sets, daily range): BP systolic 107–137; BP diastolic 50–66
[2017-06-10] MEDS: METOCLOPRAMIDE HCL 10 MG/10 ML UDC GT SCH ×3 (00:40→16:06)
[2017-06-10] MEDS: BLOOD SUGAR DIAGNOSTIC 1 EACH STRIP IN SCH ×4 (00:40→17:31)
[2017-06-10] MEDS: INSULIN REGULAR, HUMAN 100 UNIT/ML 3 ML VIAL SQ PRN ×3 (00:50→12:08)
[2017-06-10] MEDS: ACETAMINOPHEN 325 MG TABLET PO PRN (02:19)
[2017-06-10] MEDS: MIDODRINE HCL (5MG) 5 MG TABLET GT SCH ×3 (05:13→21:35)
[2017-06-10 08:06] LABS: EOSINOPHILS % (AUTO) 0.2 % (0.0-6.0); HEMATOCRIT 26 % (33-45); HEMOGLOBIN 8.5 g/dL (11.5-14.8); LYMPHOCYTES # (AUTO) 1.4 /CMM (0.8-4.8); LYMPHOCYTES % (AUTO) 7.6 % (20.0-44.0); MEAN CORPUSCULAR HEMOGLOBIN 31 PG (26.0-33.0); MEAN CORPUSCULAR HGB CONC 33 g/dl (31.0-36.0); MEAN CORPUSCULAR VOLUME 96 fL (82-100); MONOCYTES # (AUTO) 1.3 /CMM (0.1-1.30); MONOCYTES % (AUTO) 6.8 % (2.0-12.0); NEUTROPHILS # (AUTO) 15.8 /CMM (1.8-8.9); NEUTROPHILS % (AUTO) 85.4 % (43.0-81.0); PLATELET COUNT (AUTO) 113 /CMM (150-450); RDW COEFFICIENT OF VARIATION 21.4 (11.5-15.0); RED BLOOD CELL COUNT(AUTO) 2.71 MIL/uL (4.0-5.2); WHITE BLOOD COUNT (AUTO) 18.5 K/uL (4.3-11.0)
[2017-06-10] MEDS: predniSONE 5 MG TABLET PO SCH ×2 (08:23→21:34)
[2017-06-10] MEDS: SILDENAFIL CITRATE 20 MG TABLET PO SCH (08:23)
[2017-06-10] MEDS: LEVOTHYROXINE SODIUM 75 MCG TABLET GT SCH ×2 (08:23→21:34)
[2017-06-10] MEDS: PANTOPRAZOLE 40 MG VIAL IV SCH ×2 (08:23→16:06)
[2017-06-10] MEDS: VALACYCLOVIR HCL 500 MG TABLET PO SCH (08:24)
[2017-06-10] MEDS: FOLIC ACID 1 MG TABLET GT SCH (08:24)
[2017-06-10] MEDS: VANCOMYCIN 500 MG in IV NS 0.9% 100 ML IV PRN (11:17)
[2017-06-10] MEDS ORDERED: VANCOMYCIN 1 GM in IV NS 0.9% 250 ML IV ONE (13:00)
[2017-06-10] MEDS ORDERED: VANCOMYCIN 1 GM in IV D5W 250 ML IV ONE (15:00)
[2017-06-11] VITALS: BP 119/58
[2017-06-11] MEDS: METOCLOPRAMIDE HCL 10 MG/10 ML UDC GT SCH ×3 (00:58→17:00)
[2017-06-11] MEDS: BLOOD SUGAR DIAGNOSTIC 1 EACH STRIP IN SCH ×4 (00:58→17:33)
[2017-06-11 04:00] VITALS: BP 121/57
[2017-06-11] MEDS: MIDODRINE HCL (5MG) 5 MG TABLET GT SCH ×3 (05:38→21:31)
[2017-06-11] MEDS: RENAL NOVASOURCE 1,000 ML BOTTLE GT PRN (05:42)
[2017-06-11 07:41] LABS: EOSINOPHILS # (AUTO) 0.2 /CMM (0.0-0.7); EOSINOPHILS % (AUTO) 0.8 % (0.0-6.0); HEMATOCRIT 28 % (33-45); LYMPHOCYTES # (AUTO) 1.5 /CMM (0.8-4.8); LYMPHOCYTES % (AUTO) 7.8 % (20.0-44.0); MEAN CORPUSCULAR HEMOGLOBIN 31 PG (26.0-33.0); MEAN CORPUSCULAR HGB CONC 32 g/dl (31.0-36.0); MEAN CORPUSCULAR VOLUME 96 fL (82-100); MONOCYTES # (AUTO) 1.5 /CMM (0.1-1.30); MONOCYTES % (AUTO) 7.9 % (2.0-12.0); NEUTROPHILS # (AUTO) 15.7 /CMM (1.8-8.9); NEUTROPHILS % (AUTO) 83.5 % (43.0-81.0); PLATELET COUNT (AUTO) 115 /CMM (150-450); RDW COEFFICIENT OF VARIATION 21.4 (11.5-15.0); RED BLOOD CELL COUNT(AUTO) 2.91 MIL/uL (4.0-5.2); WHITE BLOOD COUNT (AUTO) 18.9 K/uL (4.3-11.0)
[2017-06-11 08:00] VITALS: BP 132/74
[2017-06-11 08:00] LABS: CALCIUM, SERUM 8.7 mg/dL (8.5-10.1); CREATININE 2.8 mg/dL (0.6-1.3); POTASSIUM 4.7 mmol/L (3.5-5.1)
[2017-06-11] MEDS: predniSONE 5 MG TABLET PO SCH ×2 (08:30→21:32)
[2017-06-11] MEDS: VALACYCLOVIR HCL 500 MG TABLET PO SCH (08:30)
[2017-06-11] MEDS: PANTOPRAZOLE 40 MG VIAL IV SCH ×2 (08:30→17:00)
[2017-06-11] MEDS: LEVOTHYROXINE SODIUM 75 MCG TABLET GT SCH ×2 (08:30→21:32)
[2017-06-11] MEDS: FOLIC ACID 1 MG TABLET GT SCH (08:30)
[2017-06-11] MEDS: SILDENAFIL CITRATE 20 MG TABLET PO SCH (08:32)
[2017-06-11 12:00] VITALS: BP 118/56
[2017-06-11] MEDS: INSULIN REGULAR, HUMAN 100 UNIT/ML 3 ML VIAL SQ PRN (12:13)
[2017-06-11 16:00] VITALS: BP 115/69
[2017-06-11 21:31] VITALS: BP 103/53
== END 2017-06-11 22:00 | DRG 871 ==
LOC: ER 19:55 → TELE1 21:43 → TELE-TD 22:46 → TELE1 06-04 14:35
PROC: 30233N1 Transfusion of Nonautologous Red Blood Cells into Peripheral Vein, Percutaneous Approach (ICD-10-PCS; principal; 2017-05-31)
PROC: 02HV33Z Insertion of Infusion Device into Superior Vena Cava, Percutaneous Approach (ICD-10-PCS; 2017-06-02)
PROC: 5A1D70Z Performance of Urinary Filtration, Intermittent, Less than 6 Hours Per Day (ICD-10-PCS; 2017-06-02)
PROC: 5A1945Z Respiratory Ventilation, 24-96 Consecutive Hours (ICD-10-PCS; 2017-06-03)
PROC: 0BH17EZ Insertion of Endotracheal Airway into Trachea, Via Natural or Artificial Opening (ICD-10-PCS; 2017-06-03)
PROC: 5A1D70Z Performance of Urinary Filtration, Intermittent, Less than 6 Hours Per Day (ICD-10-PCS; 2017-06-04)
PROC: 0DD68ZX Extraction of Stomach, Via Natural or Artificial Opening Endoscopic, Diagnostic (ICD-10-PCS; 2017-06-05)
PROC: 5A1D70Z Performance of Urinary Filtration, Intermittent, Less than 6 Hours Per Day (ICD-10-PCS; 2017-06-06)
PROC: 5A09357 Assistance with Respiratory Ventilation, Less than 24 Consecutive Hours, Continuous Positive Airway Pressure (ICD-10-PCS; 2017-06-06)
PROC: 5A1D70Z Performance of Urinary Filtration, Intermittent, Less than 6 Hours Per Day (ICD-10-PCS; 2017-06-08)
PROC: B547ZZA Ultrasonography of Left Subclavian Vein, Guidance (ICD-10-PCS; 2017-06-08)
PROC: 05H633Z Insertion of Infusion Device into Left Subclavian Vein, Percutaneous Approach (ICD-10-PCS; 2017-06-08)
PROC: 5A1D70Z Performance of Urinary Filtration, Intermittent, Less than 6 Hours Per Day (ICD-10-PCS; 2017-06-10)
DX: A41.9 Sepsis, unspecified organism (principal); N18.6 End stage renal disease; J96.22 Acute and chronic respiratory failure with hypercapnia; Z99.11 Dependence on respirator [ventilator] status; I13.2 Hypertensive heart and chronic kidney disease with heart failure and with stage 5 chronic kidney disease, or end stage renal disease; G93.40 Encephalopathy, unspecified; E46 Unspecified protein-calorie malnutrition; Z93.0 Tracheostomy status; R64 Cachexia; J18.9 Pneumonia, unspecified organism; K65.9 Peritonitis, unspecified; R18.8 Other ascites; E87.1 Hypo-osmolality and hyponatremia; K56.7 Ileus, unspecified; E44.1 Mild protein-calorie malnutrition; I11.0 Hypertensive heart disease with heart failure; I27.20 Pulmonary hypertension, unspecified; Z99.2 Dependence on renal dialysis; Z95.2 Presence of prosthetic heart valve; Z93.1 Gastrostomy status; Z86.19 Personal history of other infectious and parasitic diseases; R13.10 Dysphagia, unspecified; K80.20 Calculus of gallbladder without cholecystitis without obstruction; I25.10 Atherosclerotic heart disease of native coronary artery without angina pectoris; I48.91 Unspecified atrial fibrillation; I70.0 Atherosclerosis of aorta; D50.0 Iron deficiency anemia secondary to blood loss (chronic); Z88.8 Allergy status to other drugs, medicaments and biological substances; Z79.899 Other long term (current) drug therapy; B02.9 Zoster without complications; J20.9 Acute bronchitis, unspecified; E66.01 Morbid (severe) obesity due to excess calories; E87.5 Hyperkalemia; I50.9 Heart failure, unspecified; M85.9 Disorder of bone density and structure, unspecified; E55.9 Vitamin D deficiency, unspecified; K29.70 Gastritis, unspecified, without bleeding; T14.8XXA Other injury of unspecified body region, initial encounter; X58.XXXA Exposure to other specified factors, initial encounter; Y92.129 Unspecified place in nursing home as the place of occurrence of the external cause; R19.7 Diarrhea, unspecified
CPT/HCPCS: 31720; 36415; 36600; 71045-TC; 74018; 80048-TC; 80053-TC; 80061-TC; 80076-TC; 80202-TC; 82272-TC; 82306; 82728-TC; 82746; 82803-TC; 82947-TC; 82962-TC; 83010; 83540-TC; 83615-TC; 83690-TC; 83735-TC; 83880; 84100-TC; 84443-TC; 84484-TC; 84550-TC; 85025-TC; 85045-TC; 85652-TC; 85730-TC; 86850-TC; 86921-TC; 87040-TC; 87070-TC; 87081-TC; 87186-TC; 88305-TC; 88313-TC; 88342; 89051-TC; 90935-TC; 93307-TC; 94002; 94002-TC; 94003-TC; 94640-TC; 94760-TC; 94762-TC; A4216; A4606; A4623; A6253; A6402; A7526; C9113; J0696; J0885; J1815; J2185; J2765; J3370; J3480; J3490; J7030; J7050; J7060; J7512; J8597; P9016-BL; Z7610

== ENCOUNTER 2017-06-16 21:32 | Inpatient (IN) | payer OTHER, MEDICARE ==
[~2017-06-16] VITALS: Ht 154.9 cm; Wt 63.0 kg
[~2017-06-16 21:32] MED LIST: ACET325T80 GT; D-ME118S12 GT; FOLI1TAB16 GT; INSU100I4 SQ; LACT-96 GT; LACT10SO GT; LACT1TAB20 GT; LEVO150T8 GT; METO-295 GT; MIDO10TA GT; MIDO5TAB GT; ONDA4TAB10 GT; PRED5TAB48 GT; SILD100T GT
--- NOTE | 2017-06-16 22:00 | NUR ---
66 yo female bb ra from SNF for ALOC. per family she is normaly alert. patient skin warm and dry, resp even and unlabored. patient is noted to be hypotensive in the 90's. MD notified. patient gowned,placed on cardiac rehabilitation specialist. will continue to monitor
[2017-06-16] MEDS ORDERED: IV NS 0.9% 500 ML BAG IV ONE (22:30)
[2017-06-16 22:40] LABS: ABG BASE EXCESS 5.1 mmol/L; ABG OXYGEN SATURATION 93.8 % (92.0-98.5); ABG PCO2 70.4 mmHg (35.0-45.0); ABG PH 7.289 (7.350-7.450); ABG PO2 83.1 mmHg (75.0-100.0); MetHb 0.5 % (0.0-1.5); O2Hb 92.4 % (94.0-97.0); VENT MODE, BG 12L TRACH MASK
--- NOTE | 2017-06-16 23:07 | NUR ---
VENT SETTINGS AC 10, TV 400, 40% PEEP 5
[2017-06-16 23:09] VITALS: BP 94/53
--- NOTE | 2017-06-16 23:11 | NUR ---
RT CALLED TO PT BEDSIDE TO PROCESS VENOUS BLOOD GAS. POST VBG RESULTS PT PLACED ON VENT VIA TRACH CHARTED. VENT PLUGGED INTO RED OUTLET. AMBU BAG AT BEDSIDE ALARMS SET AND AUDIBLE. SUCTIONED A MODERATE AMOUNT OF THICK RED SECRETIONS Addendum: 06/16/17 at 2313 by RONALD BRICENO RT Amended: Links added.
[2017-06-16 23:18] LABS: HEMATOCRIT 25 % (33-45); HEMOGLOBIN 8.4 g/dL (11.5-14.8); LYMPHOCYTES % (AUTO) 7.6 % (20.0-44.0); MEAN CORPUSCULAR HEMOGLOBIN 32 PG (26.0-33.0); MEAN CORPUSCULAR HGB CONC 33 g/dl (31.0-36.0); MEAN CORPUSCULAR VOLUME 98 fL (82-100); NEUTROPHILS % (AUTO) 81.1 % (43.0-81.0); PLATELET COUNT (AUTO) 129 /CMM (150-450); RDW COEFFICIENT OF VARIATION 20.9 (11.5-15.0)
[2017-06-16 23:19] LABS: EOSINOPHILS % (AUTO) 0.3 % (0.0-6.0); LYMPHOCYTES # (AUTO) 1.1 /CMM (0.8-4.8); MONOCYTES # (AUTO) 1.6 /CMM (0.1-1.30); NEUTROPHILS # (AUTO) 12.2 /CMM (1.8-8.9)
[2017-06-16 23:26] LABS: INR 0.99 (0.87-1.13)
--- NOTE | 2017-06-16 23:29 | NUR ---
PEEP DC DUE TO DECREASED BP Addendum: 06/16/17 at 2330 by RONALD FIERRO Amended: Links added.
[2017-06-16 23:35] LABS: TROPONIN I 0.904 ng/mL (0.00-0.056)
[2017-06-16] MEDS ORDERED: PIPERACILLIN /TAZOBACTAM 3.375 G VIAL IV ONE (23:39)
[2017-06-17] VITALS (60 sets, daily range): BP systolic 80–127; BP diastolic 30–77
[2017-06-17] LABS: ALBUMIN 2.4 g/dL (3.4-5.0); BILIRUBIN,TOTAL 0.4 mg/dL (0.2-1.0); CALCIUM, SERUM 8.5 mg/dL (8.5-10.1); CREATININE 3.4 mg/dL (0.6-1.3); POTASSIUM 4.9 mmol/L (3.5-5.1); TOTAL PROTEIN, SERUM 7.3 g/dL (6.4-8.2)
[2017-06-17] MEDS ORDERED: PIPERACILLIN /TAZOBACTAM 3.375 G in IV D5W 50 ML IV ONE ×2
[2017-06-17] MEDS ORDERED: IV NS 0.9% 1,000 ML BAG IV ONE
--- NOTE | 2017-06-17 | NUR ---
pt sbp remains in the 80's, notified
[2017-06-17] MEDS ORDERED: HYDROCORTISONE SOD SUCCINATE 100 MG/2 ML VIAL ONE (00:44)
[2017-06-17] MEDS ORDERED: HYDROCORTISONE SOD SUCCINATE 100 MG/2 ML VIAL IV ONE (01:00)
[2017-06-17] MEDS ORDERED: IV NS 0.9% 500 ML BAG IV ONE (01:00)
[2017-06-17 01:10] LABS: ABG BASE EXCESS 2.9 mmol/L; ABG PCO2 70.7 mmHg (35.0-45.0); ABG PH 7.259 (7.350-7.450); AaDO2 103.9 mmHg; COHb 0.8 % (0.5-1.5); MetHb 0.6 % (0.0-1.5); O2Hb 94.7 % (94.0-97.0); PEEP,BG 0 cm H2O; SITE, ABG Right Radial; VENT MODE, BG AC 10 400 40% +0; VT, ABG 400 mL
[2017-06-17] MEDS ORDERED: ACETAMINOPHEN 325 MG TABLET MC PRN (01:30)
--- NOTE | 2017-06-17 01:37 | NUR ---
VENT CHANGES PER ER MD POST ABG RESULTS Addendum: 06/17/17 at 0137 by RONALD BRICENO RT Amended: Links added.
[2017-06-17] MEDS ORDERED: HEPARIN INFUSION/D5W 500 ML IV PRN (02:00)
[2017-06-17] MEDS ORDERED: MAG HYDROX/AL HYDROX/SIMETH 30 ML UDC PO PRN (02:00)
[2017-06-17] MEDS ORDERED: ONDANSETRON HCL/PF 4 MG/2 ML VIAL IVP PRN (02:00)
[2017-06-17] MEDS ORDERED: MORPHINE SULFATE INJ 2 MG/ML DISP.SYRIN IV PRN (02:00)
[2017-06-17] MEDS ORDERED: MAGNESIUM HYDROXIDE 30 ML UDC PO PRN (02:00)
[2017-06-17] MEDS ORDERED: ZOLPIDEM TARTRATE 5 MG TABLET PO PRN (02:00)
--- NOTE | 2017-06-17 02:30 | NUR ---
RN NOTES RECEIVED REPORT FROM WOOL CLEANERALCON GLYNN
--- NOTE | 2017-06-17 02:48 | NUR ---
report was given to ALCON hernandez for radha
--- NOTE | 2017-06-17 02:50 | NUR ---
RN NOTES PT ARRIVED VIA GURNEY. PT IS AWAKE AND ALERT, NON-VERBAL. VENT/TRACH WITH SETTINGS AC 16, TV 375, FIO2 40%, PEEP 5, SHILEY 6, SATURATING WELL, NO S/S OF RESP DISTRESS. CONTROLLED AFIB ON THE MONITOR, HR 90'S. ALL VITALS STABLE. SKIN CHECKED, PICS TAKEN AND FILED. PT IS ANURIC AND ON DIAPERS. RIGHT FOREARM 20G FLUSHED AND PATENT, NO S/S OF INFILTRATION/INFECTION, DRESSING CDI. BED LOW AND LOCKED, SIDERAILS UP, BED ALARM ON. WILL MONITOR
--- NOTE | 2017-06-17 03:04 | NUR ---
transported pt to ICU bed without incident
[2017-06-17] MEDS: ASPIRIN 325 MG TABLET PO SCH ×2 (03:26→08:12)
[2017-06-17] MEDS ORDERED: HEPARIN INFUSION/D5W 500 ML IV ONE (03:28)
[2017-06-17] MEDS ORDERED: NOREPINEPHRINE 8 MG in IV D5W 500 ML IV PRN (03:30)
[2017-06-17] MEDS ORDERED: HEPARIN SODIUM, PORCINE 5000 UNITS/1 ML VIAL IV ONE (04:00)
[2017-06-17] MEDS: METOCLOPRAMIDE HCL 10 MG TABLET GT SCH ×3 (04:18→20:17)
[2017-06-17] MEDS: MIDODRINE HCL (5MG) 5 MG TABLET GT SCH ×3 (04:18→20:17)
--- NOTE | 2017-06-17 06:30 | NUR ---
RN CLOSING NOTES PT REMAINS STABLE OF THE MOMENT. ALL DUE MEDS GIVEN, AM CARE PROVIDED. WILL ENDORSE MICHELLE TO AM RN
--- NOTE | 2017-06-17 07:05 | NUR ---
RN INITIAL NOTES RECEIVED PT AWAKE, A/OX 1. NO RESPIRATORY DISTRESS NOTED. NO SOB NOTED. DENIES ANY PAIN. TRACH IN PLACE. HOB ELEVATED. IV LINES IN PLACE. ON HEPARIN DRIP AT 930UNITS/HR. PTT AT [address], CLAMPED. ABDOMINAL DRAIN IN PLACE FOR PERITONEAL HD. PT CLEAN AND DRY. BLE ELEVATED. WILL MONITOR. Addendum: 06/17/17 at 0907 by IRMA GLASGOW RN CORRECTION... LEFT ABDOMINAL DRAIN FOR CHRONIC ASCITES. NOT FOR PERITONEAL HD. PT HAS LEFT FEMORAL PERMACATH TUNNELED TO ABDOMEN FOR HD.
--- NOTE | 2017-06-17 07:30 | NUR ---
RN NOTES SEEN AND EXAMINED BY DR. CARR. PT A/0X1. NO RESPIRATORY DISTRESS NOTED. NO SOB NOTED. NO SIGNS OF PAIN NOTED. TOLERATING VENT WELL. AWARE OF CURRENT LAB VALUES: WBC 11.5, HGB 7.6, HCT 23, PLATELET 105. NO SIGNS OF ACTIVE BLEEDING NOTED. SODIUM 130, POTASSIUM 5.2, BUN 42, CREA 3.4, PHOS 7. MG 2.2. TROPONIN 0.971 FROM 0.904. PT ON HEPARIN DRIP AT 930UNITS/HR. PTT AT 1000. ALSO AWARE OF CXR RESULT. FOR CARDIO AND PULMO CONSULT. WILL CONTINUE TO MONITOR.
[2017-06-17 07:40] LABS: EOSINOPHILS % (AUTO) 0.1 % (0.0-6.0); HEMATOCRIT 23 % (33-45); HEMOGLOBIN 7.6 g/dL (11.5-14.8); LYMPHOCYTES # (AUTO) 0.8 /CMM (0.8-4.8); LYMPHOCYTES % (AUTO) 6.8 % (20.0-44.0); MEAN CORPUSCULAR HEMOGLOBIN 31 PG (26.0-33.0); MEAN CORPUSCULAR HGB CONC 33 g/dl (31.0-36.0); MEAN CORPUSCULAR VOLUME 96 fL (82-100); MONOCYTES # (AUTO) 0.1 /CMM (0.1-1.30); NEUTROPHILS # (AUTO) 10.6 /CMM (1.8-8.9); NEUTROPHILS % (AUTO) 92.1 % (43.0-81.0); PLATELET COUNT (AUTO) 105 /CMM (150-450); RDW COEFFICIENT OF VARIATION 21.1 (11.5-15.0); RED BLOOD CELL COUNT(AUTO) 2.41 MIL/uL (4.0-5.2); WHITE BLOOD COUNT (AUTO) 11.5 K/uL (4.3-11.0)
[2017-06-17 07:53] LABS: CALCIUM, SERUM 7.9 mg/dL (8.5-10.1); CREATININE 3.4 mg/dL (0.6-1.3); MAGNESIUM 2.2 mg/dL (1.8-2.4); POTASSIUM 5.2 mmol/L (3.5-5.1)
[2017-06-17] MEDS: FOLIC ACID 1 MG TABLET GT SCH (08:12)
[2017-06-17] MEDS: PIPERACILLIN /TAZOBACTAM 2.25 G in IV D5W 50 ML IV SCH ×3 (08:12→20:18)
[2017-06-17] MEDS: LACTULOSE 10 G/15 ML UDC (PYXIS) GT SCH (08:12)
--- NOTE | 2017-06-17 08:17 | NUR ---
WOUND CARE CONSULT: PT PRESENTS WITH SACRAL ULCER, STAGE 2, DEEP TISSUE INJURY TO RT BUTTOCK (INTACT), LEFT BREASTFOLD EXCORIATION AND MULTIPLE AREAS OF BRUISING. ALL SKIN PROTECTION AND WOUND RECOMMENDATIONS DISCUSSED WITH NURSING STAFF. FIRST STEP MATTRESS ORDERED. CURRENT ROBERT SCORE IS 12. WILL SEE PRN. AGUIAR IN AGREEMENT WITH PLAN OF CARE. Addendum: 06/17/17 at 0819 by MONICA AMAYA WNDNU Amended: Links added.
[2017-06-17] MEDS ORDERED: HYDROGEL DRESSING 90 GM TUBE TP PRN (08:30)
--- NOTE | 2017-06-17 08:30 | NUR ---
RN NOTES SEEN AND EXAMINED BY DR. AQUINO. AWARE OF CURRENT LAB VALUES: WBC 11.5, HGB 7.6, HCT 23, PLATELET 105. NO SIGNS OF ACTIVE BLEEDING NOTED. SODIUM 130, POTASSIUM 5.2, BUN 42, CREA 3.4, PHOS 7. MG 2.2. TROPONIN 0.971 FROM 0.904. PT ON HEPARIN DRIP AT 930UNITS/HR. ALSO AWARE OF CXR RESULT. DC'D HEPARIN DRIP AND ORDERED HEPARIN SUBQ. DISCUSSED PLAN OF CARE TO DAUGHTER AT BEDSIDE. WILL MONITOR.
[2017-06-17] MEDS ORDERED: PIPERACILLIN /TAZOBACTAM 2.255 G in IV D5W 50 ML IV SCH (09:00)
--- NOTE | 2017-06-17 09:00 | NUR ---
RN NOTES SEEN AND EXAMINED BY DR. VELAZQUEZ. AWARE OF CURRENT LAB VALUES AND CXR RESULT. REVIEWED H&P AND CURRENT MEDS. PT HAS TRACH CONNECTED TO VENT. NO RESPIRATORY DISTRESS NOTED. HOB ELEVATED. WILL MONITOR.
--- NOTE | 2017-06-17 09:10 | NUR ---
RN NOTES SEEN AND EXAMINED BY DR. LÓPEZ. REVIEWED H&P AND CURRENT MEDS. AWARE OF LAB VALUES AND CXR RESULT. NO ORDER MADE. WILL MONITOR.
[2017-06-17] MEDS: HYDROGEL DRESSING 90 GM TUBE TP SCH (09:14)
[2017-06-17] MEDS: HEPARIN SODIUM, PORCINE 5000 UNITS/1 ML VIAL SQ SCH ×2 (09:16→20:17)
[2017-06-17] MEDS ORDERED: GUAIFENESIN/D-METHORPHAN HB 5 ML UDC GT PRN (09:30)
--- NOTE | 2017-06-17 09:34 | NUR ---
RN NOTES LEVOPHED STARTED. BPO 70/43. PT WILL HAVE HD TODAY. WILL CLOSELY MONITOR.
--- NOTE | 2017-06-17 09:45 | NUR ---
RN NOTES HD STARTED. NO RESPIRATORY DISTRESS NOTED. PT ON LEVO. SBP 80S. WILL TITRATE ACCORDINGLY. WILL CLOSELY MONITOR.
[2017-06-17] MEDS ORDERED: ALBUMIN 25% 25 GM in PREMIX 1 EA IV ONE (10:00)
[2017-06-17 11:47] LABS: BAND % (MANUAL) 2 % (0.0-5.0); LYMPHOCYTES % (MANUAL) 6 % (16-48); METAMYELOCYTES % 1 % (0-0); MONOCYTES % (MANUAL) 1 % (0-11.0); MYELOCYTES % 2 % (0-0); NEUTROPHILS % (MANUAL) 88 (42-76)
--- NOTE | 2017-06-17 12:15 | NUR ---
RN NOTES HD DONE. REMOVED 1.8L. TOLERATED WELL. NO RESPIRATORY DISTRESS NOTED. NO SOB NOTED. NO SIGNS OF PAIN NOTED. ON LEVO AT 1MCG/MIN. WILL CLOSELY MONITOR.
[2017-06-17] MEDS: IPRATROPIUM NEB FS 0.5 MG/2.5 ML AMPUL.NEB NEB SCH ×2 (15:00→19:56)
--- NOTE | 2017-06-17 17:41 | NUR ---
RT END OF THE SHIFT REPORT: PT. 66 Y OLD FEMALE REMAIN TRACHED SHILEY # 6 ON VENT WITH NOTED SETTINGS, REMAIN AWAKE AND STABLE. ALARMS ARE SET AND FUNCTIONAL. B/S BILATERALLY RHONCHI AND RALES. SUX'D FOR MOD. AMT. PALE SECRETIONS, VENT CHANGES PER DR. VELAZQUEZ, AND EQUAL CHEST RISE NOTED T/O SHIFT. NO DISTRESS NOTED AND CONTINUE FOR MONITOR AND CARE. HME CHANGED. AMBU BAG AT THE BEDSIDE. VENT INTO RED OUTLET. REPORT WILL BE PASS TO PM SHIFT. Addendum: 06/17/17 at 1743 by KOKO FRIEDMAN RT Amended: Links added.
--- NOTE | 2017-06-17 18:39 | NUR ---
RN NOTES NO SIGNIFICANT CHANGE NOTED. PT TRACH IN PLACE. NO RESPIRATORY DISTRESS. NO SIGNS OF PAIN NOTED. PICC LINE IN PLACE. PT CLEAN AND DRY. TX ORDERED. REPOSITIONED Q2. BLE ELEVATED. WILL ENDORSE TO CONTINUITY OF CARE.
--- NOTE | 2017-06-17 19:00 | NUR ---
RN INITIAL NOTES RECEIVED THE PATIENT AWAKE ON BED, NON-VERBAL BUT ABLE TO SIGNAL AND MOUTH WORDS TO MAKE HER NEEDS KNOWN. VENT/TRACH WITH SETTINGS AC 16, TV 450, FIO2 40%, PEEP5, SHILEY 6, SATURATING WELL, NO S/S RESP DISTRESS. AFIB ON THE MONITOR WITH OCCASIONAL V-PACING, HR 90'S. PT IS ANURIC, ON DIAPER. GT IS CLAMPED. LEFT ABDOMINAL PERITONEAL DRAIN AND HD CATH NOTED TO BE INTACT. RIGHT FOREARM 20G AND LEFT UPPER ARM PICC BOTH FLUSHED AND PATENT, NO S/S OF INFILTRATION/INFECTION, DRESSINGS CDI. BED LOW AND LOCKED, SIDERAILS UP, CALL LIGHT WITHIN REACH. WILL MONITOR
--- NOTE | 2017-06-17 21:06 | NUR ---
Patient is trach/vent dependent currently a resident of [facility] [phone]/ f [phone]. Patient is totally dependent with adls and bedfast most of the time. [facility] She receives HD @ [facility] [phone] every TTHS.Family are involved and supportive with plan of care. [facility]. Addendum: 06/17/17 at 2107 by NIRAJ COFFEY RN Amended: Links added.
[2017-06-18] VITALS (41 sets, daily range): BP systolic 59–109; BP diastolic 44–71
[2017-06-18] MEDS: IPRATROPIUM NEB FS 0.5 MG/2.5 ML AMPUL.NEB NEB SCH ×4 (01:58→19:47)
[2017-06-18] MEDS ORDERED: MIDODRINE HCL (5MG) 5 MG TABLET ONE (04:03)
[2017-06-18] MEDS: PIPERACILLIN /TAZOBACTAM 2.25 G in IV D5W 50 ML IV SCH ×3 (04:15→20:58)
[2017-06-18] MEDS: METOCLOPRAMIDE HCL 10 MG TABLET GT SCH ×3 (04:15→20:59)
[2017-06-18] MEDS: MIDODRINE HCL (5MG) 5 MG TABLET GT SCH ×3 (04:15→20:59)
[2017-06-18 04:54] LABS: BASOPHILS % (AUTO) 0.3 % (0.0-2.0); EOSINOPHILS % (AUTO) 0.5 % (0.0-6.0); HEMATOCRIT 22 % (33-45); HEMOGLOBIN 7.3 g/dL (11.5-14.8); LYMPHOCYTES # (AUTO) 1.2 /CMM (0.8-4.8); LYMPHOCYTES % (AUTO) 14.3 % (20.0-44.0); MEAN CORPUSCULAR HEMOGLOBIN 31 PG (26.0-33.0); MEAN CORPUSCULAR HGB CONC 33 g/dl (31.0-36.0); MEAN CORPUSCULAR VOLUME 96 fL (82-100); MONOCYTES # (AUTO) 0.7 /CMM (0.1-1.30); NEUTROPHILS # (AUTO) 6.2 /CMM (1.8-8.9); NEUTROPHILS % (AUTO) 75.9 % (43.0-81.0); PLATELET COUNT (AUTO) 109 /CMM (150-450); RED BLOOD CELL COUNT(AUTO) 2.32 MIL/uL (4.0-5.2); WHITE BLOOD COUNT (AUTO) 8.2 K/uL (4.3-11.0)
[2017-06-18 05:13] LABS: ALBUMIN 2.3 g/dL (3.4-5.0); BILIRUBIN,TOTAL 0.8 mg/dL (0.2-1.0); CALCIUM, SERUM 8.4 mg/dL (8.5-10.1); CREATININE 2.7 mg/dL (0.6-1.3); MAGNESIUM 1.9 mg/dL (1.8-2.4); PHOSPHORUS 4.2 mg/dL (2.5-4.9); POTASSIUM 3.3 mmol/L (3.5-5.1)
[2017-06-18 05:31] LABS: TROPONIN I 0.948 ng/mL (0.00-0.056)
--- NOTE | 2017-06-18 06:00 | NUR ---
RN CLOSING NOTES PT REMAINS STABLE OF THE MOMENT. ALL DUE MEDS GIVEN, AM CARE PROVIDED. WILL ENDORSE MICHELLE TO AM RN
--- NOTE | 2017-06-18 07:05 | NUR ---
RN INITIAL NOTES RECEIVED PT AWAKE, A/OX 1. NO RESPIRATORY DISTRESS NOTED. NO SOB NOTED. DENIES ANY PAIN. TRACH IN PLACE. HOB ELEVATED. PICC LINE IN PLACE. PERMACATH IN PLACE. DRESSING CLEAN AND DRY. GTUBE CLAMPED. ABDOMINAL DRAIN INTACT. PT CLEAN AND DRY. BLE ELEVATED. WILL MONITOR.
--- NOTE | 2017-06-18 07:27 | NUR ---
Received female kev pt on mechanical vent. Pt kev is secure. Vent is plugged into a red outlet, alarms are set and audible, and BVM is at bedside. Addendum: 06/18/17 at 0728 by NELSON PEÑA RT Amended: Links added.
[2017-06-18] MEDS: LACTULOSE 10 G/15 ML UDC (PYXIS) GT SCH (08:20)
[2017-06-18] MEDS: FOLIC ACID 1 MG TABLET GT SCH (08:21)
[2017-06-18] MEDS: HYDROGEL DRESSING 90 GM TUBE TP SCH (08:21)
[2017-06-18] MEDS: HEPARIN SODIUM, PORCINE 5000 UNITS/1 ML VIAL SQ SCH ×2 (08:22→20:59)
--- NOTE | 2017-06-18 09:00 | NUR ---
RN NOTES SEEN AND EXAMINED BY DR. AQUINO. AWARE OF CURRENT LAB VALUES: WBC 8.2, HGB 7.3, HCT 22, PLATELET 109. POTASSIUM 3.3, BUN 28, CREA 2.7 AND TROPONIN 0.948 AND CXR RESULT. PT AWAKE, A/0X1. NO RESPIRATORY DISTRESS NOTED. VS STABLE. WILL MONITOR.
[2017-06-18 09:05] LABS: ABG BASE EXCESS 0.8 mmol/L; ABG PCO2 37.9 mmHg (35.0-45.0); ABG PH 7.436 (7.350-7.450); ABG PO2 192.5 mmHg (75.0-100.0); AaDO2 49.1 mmHg; COHb 0.8 % (0.5-1.5); MetHb 0.4 % (0.0-1.5); O2Hb 97.8 % (94.0-97.0); SITE, ABG Right Radial; VENT MODE, BG AC 16 450 40% +5
--- NOTE | 2017-06-18 09:10 | NUR ---
RN NOTES SEEN AND EXAMINED BY DR. PHILLIPS. AWARE OF CURRENT LAB VALUES AND CXR RESULT. LAST HD YESTERDAY, 1.8L OUT. MD ORDERED HD AND LABS IN AM. WILL MONITOR
--- NOTE | 2017-06-18 10:00 | NUR ---
RN NOTES SEEN AND EXAMINED BY DR. VELAZQUEZ. AWARE OF CURRENT LAB VALUES AND CXR RESULT. NO SEDATION. NOT ON LEVO. PT A/0X1. NO RESPIRATORY DISTRESS NOTED. WILL MONITOR
[2017-06-18] MEDS ORDERED: POTASSIUM CHLORIDE 20 MEQ POWDER PACKET GT ONE (11:00)
--- NOTE | 2017-06-18 11:00 | NUR ---
RN NOTES SEEN AND EXAMINED BY DR. CARR. AWARE OF CURRENT LAB VALUES: WBC 8.2, HGB 7.3, HCT 22, PLATELET 109, POTASSIUM 3.3, REPLACED. BUN 28, CREA 2.7. LAST HD YESTERDAY, 1.8L OUT. TROPONIN 0.948, DR. AQUINO AWARE. NO ORDER MADE AT THIS TIME. WILL MONITOR.
--- NOTE | 2017-06-18 18:34 | NUR ---
RN CLOSING NOTES NO SIGNIFICANT CHANGE NOTED. PT TRACH IN PLACE. NO RESPIRATORY DISTRESS. NO SIGNS OF PAIN NOTED. PICC LINE IN PLACE. KEPT PT CLEAN AND DRY. TX ORDERED. REPOSITIONED Q2. BLE ELEVATED. WILL ENDORSE TO CONTINUITY OF CARE.
[2017-06-18] MEDS: LEVOTHYROXINE SODIUM 75 MCG TABLET GT SCH (21:00)
[2017-06-19] VITALS (31 sets, daily range): BP systolic 77–105; BP diastolic 40–67
[2017-06-19] MEDS: IPRATROPIUM NEB FS 0.5 MG/2.5 ML AMPUL.NEB NEB SCH ×4 (01:44→19:44)
[2017-06-19 04:34] LABS: BASOPHILS % (AUTO) 0.2 % (0.0-2.0); EOSINOPHILS # (AUTO) 0.1 /CMM (0.0-0.7); EOSINOPHILS % (AUTO) 1.3 % (0.0-6.0); HEMATOCRIT 23 % (33-45); HEMOGLOBIN 7.5 g/dL (11.5-14.8); LYMPHOCYTES # (AUTO) 1.3 /CMM (0.8-4.8); LYMPHOCYTES % (AUTO) 15.6 % (20.0-44.0); MEAN CORPUSCULAR HEMOGLOBIN 31 PG (26.0-33.0); MEAN CORPUSCULAR HGB CONC 33 g/dl (31.0-36.0); MEAN CORPUSCULAR VOLUME 97 fL (82-100); MONOCYTES # (AUTO) 0.8 /CMM (0.1-1.30); MONOCYTES % (AUTO) 9.1 % (2.0-12.0); NEUTROPHILS # (AUTO) 6.3 /CMM (1.8-8.9); NEUTROPHILS % (AUTO) 73.8 % (43.0-81.0); PLATELET COUNT (AUTO) 106 /CMM (150-450); RDW COEFFICIENT OF VARIATION 22.5 (11.5-15.0); WHITE BLOOD COUNT (AUTO) 8.6 K/uL (4.3-11.0)
[2017-06-19] MEDS: METOCLOPRAMIDE HCL 10 MG TABLET GT SCH ×3 (04:47→20:27)
[2017-06-19] MEDS: PIPERACILLIN /TAZOBACTAM 2.25 G in IV D5W 50 ML IV SCH ×2 (04:47→12:23)
[2017-06-19] MEDS: MIDODRINE HCL (5MG) 5 MG TABLET GT SCH ×3 (04:47→20:49)
[2017-06-19 04:55] LABS: CALCIUM, SERUM 8.3 mg/dL (8.5-10.1); CREATININE 3.4 mg/dL (0.6-1.3); MAGNESIUM 2.1 mg/dL (1.8-2.4)
--- NOTE | 2017-06-19 05:30 | NUR ---
DIRECTOR OF SUSTAINABLE DESIGN: VENOUS BLOOD SUGAR 44, FINGER STICK BLOOD SUGAR 50, PT IS NOT DIABETIC , PT IS ASYMPTOMATIC, AWAKE , ALERT, FOLLOW COMMANDS, ORIENTED X 3, NOTIFIED JOSE STRONG, WAITING CALL BACK.
--- NOTE | 2017-06-19 06:03 | NUR ---
JACQUARD LOOM FIXER; CALL BACK FROM [facility], MADE AWARE BLOOD SUGAR 50, ORDERS TO GIVE APPLE JUICE, NO DEXTROSE FOR NOW BECAUSE PT IS ASYMPTOMATIC, ACCU CHECK Q6H.
--- NOTE | 2017-06-19 07:30 | NUR ---
ICU/RN: Pt received, on trach vent, tolerating current settings; pt communicative, alert and oriented and able to communicate needs with staff. FAUSTO PICC patent, flushed, L femoral HD cath C/D/I, no bleeding noted at site. L ABD pleural drain clamped, dressing clean and dry. Tele monitor reveals SVT 160's, p-waves counted. HR via auscultation and palpation in 90's. Underlying rhythm a-fib with V-pacing in 90's. Pt denies pain and discomfort. Will cont to monitor pt.
--- NOTE | 2017-06-19 09:00 | NUR ---
ICU/RN: Dr Lackey at bedside; updated on pt status, abn labs reviewed. Informed MD of drop in blood glucose overnight with orders to resrtart feeding per dietary rec, no coverage required. Last pleural drainage performed 06/16, Dr Lackey orders drainage q48h. Daughter at bedside and update on pt status.
[2017-06-19] MEDS: LEVOTHYROXINE SODIUM 75 MCG TABLET GT SCH ×2 (09:50→20:50)
[2017-06-19] MEDS: FOLIC ACID 1 MG TABLET GT SCH (09:50)
[2017-06-19] MEDS: LACTULOSE 10 G/15 ML UDC (PYXIS) GT SCH (09:50)
[2017-06-19] MEDS: HEPARIN SODIUM, PORCINE 5000 UNITS/1 ML VIAL SQ SCH ×2 (09:50→20:48)
[2017-06-19] MEDS: HYDROGEL DRESSING 90 GM TUBE TP SCH (09:52)
[2017-06-19] MEDS ORDERED: EPOETIN ALFA (10,000 UNIT) 10,000 UNIT/ML VIAL SQ ONE (11:00)
[2017-06-19 11:01] LABS: ALBUMIN 2.2 g/dL (3.4-5.0); BILIRUBIN,DIRECT 0.2 mg/dL (0.0-0.2); BILIRUBIN,TOTAL 0.7 mg/dL (0.2-1.0); TOTAL PROTEIN, SERUM 5.9 g/dL (6.4-8.2)
[2017-06-19] MEDS: BLOOD SUGAR DIAGNOSTIC 1 EACH STRIP IN SCH ×2 (12:22→18:05)
--- NOTE | 2017-06-19 12:45 | NUR ---
ICU/RN: Pt blood glucose 53mg/dl; administered juice. Pt asymptomatic, A&Ox3 and communicates needs to staff. Will reassess accordingly. Addendum: 06/19/17 at 1319 by NICOLETTE NOEL RN unable to enter note on accucheck; screen timed out.
--- NOTE | 2017-06-19 13:15 | NUR ---
ICU/RN: Pleurx drained as ordered with 1800cc clear yellow fluid out. Pt tolerated well.
--- NOTE | 2017-06-19 14:45 | NUR ---
ICU/RN: Pt off HD tolerated well, 2L out.
[2017-06-19] MEDS: RENAL NOVASOURCE 1,000 ML BOTTLE GT PRN (15:18)
--- NOTE | 2017-06-19 16:15 | NUR ---
ICU/RN: Bed bath, wound care rendered. Noted with small amount of soft brown BM.
--- NOTE | 2017-06-19 17:58 | NUR ---
RT NOTE: PATIENT RECEIVED TRACH ON ESPRIT VENT. ALARMS VERIFIED AND AUDIBLE. SUCTIONED AND LAVAGED MODERATE-LARGE AMOUNT OF SECRETIONS. VENT PLUGGED INTO RED OUTLET. AMBU BAG AT [facility].
--- NOTE | 2017-06-19 18:45 | NUR ---
ICU/RN: Debi, COPIER REPAIR TECHNICIAN at bedside; updated on pt status. Per COPIER REPAIR TECHNICIAN, Pleurx needs to be removed - Dr Lackey was informed by COPIER REPAIR TECHNICIAN. No orders received from Dr Lackey to DC drain, COPIER REPAIR TECHNICIAN informed.
--- NOTE | 2017-06-19 19:00 | NUR ---
ICU/RN: Pt transferred to [facility], all belongings, medications sent. Accompanied by RN and RT. Daughter at bedside. Report given to ALCON Molina for MICHELLE.
[2017-06-19] MEDS ORDERED: FEE PK DOSING 1 MIN EA MC ONE (19:23)
--- NOTE | 2017-06-19 19:30 | NUR ---
RN [facility] ICU TRANSFER RECEIVED PT FROM ICU, MAITAINED ON VENT, WELL JAMES, AOX2 NO C/O DISTRESS OR PAIN, DAUGHTER BY BED SIDE, WITH GTF RUNNING WELL JAMES NO RESIDUAL, WITH RCW PACEMAKER, PACING AT 90'S IV ACCESS SITES PATENT, PT CLEAN AND DRY WELL REPOSITIONED, WILL CONT TO MONITOR
[2017-06-19] MEDS ORDERED: VANCOMYCIN 1 GM in IV D5W 250 ML IV ONE (20:00)
[2017-06-20] VITALS: BP 98/53
[2017-06-20] MEDS: IPRATROPIUM NEB FS 0.5 MG/2.5 ML AMPUL.NEB NEB SCH ×4 (01:38→19:54)
[2017-06-20] MEDS: BLOOD SUGAR DIAGNOSTIC 1 EACH STRIP IN SCH ×4 (02:12→18:16)
[2017-06-20 04:00] VITALS: BP 98/50
[2017-06-20] MEDS: METOCLOPRAMIDE HCL 10 MG TABLET GT SCH ×3 (04:33→21:06)
[2017-06-20] MEDS: MIDODRINE HCL (5MG) 5 MG TABLET GT SCH ×3 (04:35→21:07)
[2017-06-20 06:25] LABS: BASOPHILS % (AUTO) 0.3 % (0.0-2.0); EOSINOPHILS # (AUTO) 0.1 /CMM (0.0-0.7); EOSINOPHILS % (AUTO) 1.3 % (0.0-6.0); HEMATOCRIT 25 % (33-45); HEMOGLOBIN 8.1 g/dL (11.5-14.8); LYMPHOCYTES # (AUTO) 0.9 /CMM (0.8-4.8); LYMPHOCYTES % (AUTO) 8.9 % (20.0-44.0); MEAN CORPUSCULAR HEMOGLOBIN 31 PG (26.0-33.0); MEAN CORPUSCULAR HGB CONC 32 g/dl (31.0-36.0); MEAN CORPUSCULAR VOLUME 97 fL (82-100); MONOCYTES # (AUTO) 0.9 /CMM (0.1-1.30); NEUTROPHILS # (AUTO) 7.7 /CMM (1.8-8.9); NEUTROPHILS % (AUTO) 80.5 % (43.0-81.0); PLATELET COUNT (AUTO) 106 /CMM (150-450); RDW COEFFICIENT OF VARIATION 22.2 (11.5-15.0); RED BLOOD CELL COUNT(AUTO) 2.58 MIL/uL (4.0-5.2); WHITE BLOOD COUNT (AUTO) 9.5 K/uL (4.3-11.0)
[2017-06-20 06:28] LABS: CALCIUM, SERUM 8.3 mg/dL (8.5-10.1); CREATININE 2.5 mg/dL (0.6-1.3); POTASSIUM 3.1 mmol/L (3.5-5.1)
--- NOTE | 2017-06-20 06:34 | NUR ---
RN [facility] CLOSING NOTE ENDORSED PT TO AM SHIFT, MAINTAINED ON VENT, WELL JAMES, AOX2 NO C/O DISTRESS OR PAIN, DAUGHTER BY BED SIDE, WITH GTF RUNNING WELL JAMES NO RESIDUAL, WITH RCW PACEMAKER, PACING AT 90'S IV ACCESS SITES PATENT, PT CLEAN AND DRY WELL REPOSITIONED, WILL CONT TO MONITOR
[2017-06-20 08:00] VITALS: BP 89/56
[2017-06-20] MEDS: LEVOTHYROXINE SODIUM 75 MCG TABLET GT SCH ×2 (09:10→21:05)
[2017-06-20] MEDS: FOLIC ACID 1 MG TABLET GT SCH (09:10)
[2017-06-20] MEDS: LACTULOSE 10 G/15 ML UDC (PYXIS) GT SCH (09:10)
[2017-06-20] MEDS: HYDROGEL DRESSING 90 GM TUBE TP SCH (09:11)
[2017-06-20] MEDS: HEPARIN SODIUM, PORCINE 5000 UNITS/1 ML VIAL SQ SCH ×2 (09:37→21:08)
[2017-06-20 12:00] VITALS: BP 92/42
--- NOTE | 2017-06-20 12:00 | NUR ---
RN NOTE DRESSING FOR HD ACCESS ON ABDOMEN CHANGED, DRESSING FOR PLEURX DRAIN CLEANED AND CHANGED.
[2017-06-20 12:05] LABS: ABG BASE EXCESS -0.8 mmol/L; ABG OXYGEN SATURATION 98.3 % (92.0-98.5); ABG PCO2 45.2 mmHg (35.0-45.0); ABG PH 7.357 (7.350-7.450); ABG PO2 145.4 mmHg (75.0-100.0); AaDO2 87.8 mmHg; COHb 0.5 % (0.5-1.5); MetHb 0.5 % (0.0-1.5); O2Hb 97.3 % (94.0-97.0); PEEP,BG 5 cm H2O; SITE, ABG Left Radial; VENT MODE, BG CPAP
[2017-06-20 16:00] VITALS: BP 103/48
--- NOTE | 2017-06-20 17:43 | NUR ---
RT NOTE: PATIENT RECEIVED TRACH ON ESPRIT VENT. ALARMS VERIFIED AND AUDIBLE. SUCTIONED AND LAVAGED MODERATE-LARGE AMOUNT OF SECRETIONS. VENT CHANGES DONE DUE TO MD WEANING ORDER, VENT PLUGGED INTO RED OUTLET. AMBU BAG AT [facility].
--- NOTE | 2017-06-20 19:00 | NUR ---
RN NOTE PT BEEN ON CPAP MODE ON MECH VENT, TOLERATED WELL. NO CHANGES.
--- NOTE | 2017-06-20 19:30 | NUR ---
RN NOTE PT 'S DAUGHTER IS REQUESTING SWALLOW EVAL FOR THE PT. WILL PASS IT ON TO NEXT SHIFT NURSE TO F/U WITH .
[2017-06-20 20:00] VITALS: BP 111/60
--- NOTE | 2017-06-20 20:37 | NUR ---
RN TEL INITIAL NOTE RECEIVED PT FROM AM SHIFT, MAINTAINED ON CPAP ORDERED, WELL JAMES, AOX2 NO C/O DISTRESS OR PAIN, DAUGHTER BY BED SIDE, WITH GTF RUNNING WELL JAMES NO RESIDUAL, WITH RCW PACEMAKER, PACING AT 80'S IV ACCESS SITES PATENT, PT CLEAN AND DRY WELL REPOSITIONED, WILL CONT TO MONITOR
[2017-06-21] VITALS: BP 111/60
[2017-06-21] MEDS: BLOOD SUGAR DIAGNOSTIC 1 EACH STRIP IN SCH ×5 (01:16→23:06)
[2017-06-21] MEDS: IPRATROPIUM NEB FS 0.5 MG/2.5 ML AMPUL.NEB NEB SCH ×4 (01:37→19:20)
[2017-06-21 04:00] VITALS: BP 93/57
[2017-06-21] MEDS: RENAL NOVASOURCE 1,000 ML BOTTLE GT PRN (04:46)
[2017-06-21] MEDS: MIDODRINE HCL (5MG) 5 MG TABLET GT SCH ×3 (04:47→21:06)
[2017-06-21] MEDS: METOCLOPRAMIDE HCL 10 MG TABLET GT SCH ×3 (04:47→21:06)
--- NOTE | 2017-06-21 05:00 | NUR ---
PT AMAURI'D ON MECHANICAL VENT. TREATMENTS GIVEN AND NO ADVERSE REACTION NOTED. SUCTION DONE THROUGHOUT SHIFT. PT AMAURI SECURE AND PATENT. ALARMS SET AND AUDIBLE. ANGELAU BAG AT [facility]. VENT PLUGGED INTO RED OUTLET. Addendum: 06/21/17 at 0500 by MEHNAZ JUNG RT Amended: Links added.
--- NOTE | 2017-06-21 06:30 | NUR ---
RN TEL CLOSING NOTE ENDORSED PT TO AM SHIFT, MAINTAINED ON CPAP ORDERED, WELL JAMES, AOX2 NO C/O DISTRESS OR PAIN, DAUGHTER BY BED SIDE, WITH GTF RUNNING WELL JAMES NO RESIDUAL, WITH RCW PACEMAKER, PACING AT 80'S IV ACCESS SITES PATENT, PT CLEAN AND DRY WELL REPOSITIONED, WILL CONT TO MONITOR
[2017-06-21 08:00] VITALS: BP 109/62
--- NOTE | 2017-06-21 08:07 | NUR ---
TERMITE INSPECTOR NOTE: RECEIVED PATIENT IN BED, AWAKE, ALERT TO HER NAME. DAUGHTER PRESENT AT THE BEDSIDE. ON VENT-TRACH DEPENDENT SATURATING 98%. DENIED PAIN AT THIS TIME. ON HOT IRON WORKER V-PACING HR= 92. NOT ON ANY FORM OF DISTRESS. ON GT FEEDING OF NOVASOURCE @30CC/HR AND TOLERATING WELL. (L) UA PICC LINE PATENT AND INTACT. (L) ABD HD CATH IN PLACED W/ DRESSING. BED ALARM AND LOCKED AT ALL TIMES. CALL LIGHT WITHIN REACH. PATIENT ON SCHEDULED FOR HEMODIALYSIS TODAY AND ALL BP MEDICATIONS WILL BE HELD PRIOR TO DIALYSIS.
[2017-06-21] MEDS: FOLIC ACID 1 MG TABLET GT SCH (08:52)
[2017-06-21] MEDS: LEVOTHYROXINE SODIUM 75 MCG TABLET GT SCH ×2 (08:52→21:06)
[2017-06-21] MEDS: LACTULOSE 10 G/15 ML UDC (PYXIS) GT SCH (08:52)
--- NOTE | 2017-06-21 09:37 | NUR ---
HEAD AND NECK SURGEON NOTE: SPOKE W/ DR. MENDEZ RE: THE PATIENT'S PLATELET LEVEL OF 106. WAS INFORMED OF THE HEPARIN ORDER. PER , IT'S OK TO GIVE IT AND THAT PATIENT IS SCHEDULED FOR HEMODIALYSIS TODAY.
[2017-06-21] MEDS: HYDROGEL DRESSING 90 GM TUBE TP SCH (09:46)
[2017-06-21] MEDS: HEPARIN SODIUM, PORCINE 5000 UNITS/1 ML VIAL SQ SCH ×2 (09:46→21:17)
--- NOTE | 2017-06-21 09:48 | NUR ---
INFANTRY INDIRECT FIRE CREWMEMBER NOTE: DR. MENDEZ WAS INFORMED ABOUT THE PATIENT'S BP 85/50 HR 91 UPON STARTING HEMODIALYSIS. SAID TO GIVE THE MIDODRINE 15MG SCHEDULED AT 1300 TODAY. W/ NO NEW ORDER AT THIS TIME.
--- NOTE | 2017-06-21 11:52 | NUR ---
LATHE PULLER NOTE: DR. CARR GAVE AN ORDER FOR SPEECH THERAPY EVALUATION PER DAUGHTER'S REQUEST. ORDER, NOTED AND CARRIED OUT.
[2017-06-21 12:00] VITALS: BP 106/56
--- NOTE | 2017-06-21 12:06 | NUR ---
[employer]'S ATTORNEY NOTE: PATIENT WAS SEEN BY DR. VELAZQUEZ AND PER MD, HE WANTED THE PATIENT TO BE ON COOL AEROSOL IN THE MORNING STARTING TODAY AFTER HEMODIALYSIS AND CPAP AT NIGHT. ORDER, NOTED AND CARRIED OUT. RT KATHERINE WAS INFORMED.
[2017-06-21] MEDS ORDERED: ALBUMIN 25% 25 GM in PREMIX 1 EA IV ONE (12:30)
--- NOTE | 2017-06-21 12:30 | NUR ---
SOYFREEZE OPERATOR NOTE: PATIENT'S POST HEMODIALYSIS BP 111/58, HR 90 AND 97.8F SATURATING 100%. OUTPUT WAS 2000 ML PER HEMODIALYSIS NURSE.
--- NOTE | 2017-06-21 13:40 | NUR ---
DIRECTOR OF FOOD AND NUTRITION NOTE: PATIENT WAS SWITCHED FROM CPAP TO COOL AEROSOL W/ FIO2= 40% PER DR. VELAZQUEZ'S ORDER BY THE RT.
[2017-06-21] MEDS: Z GUARD REMEDY 2 OZ OINT TP PRN (14:07)
[2017-06-21 16:00] VITALS: BP 108/53
--- NOTE | 2017-06-21 16:15 | NUR ---
MAILER NOTE: PATIENT REQUESTED TO THE RT THAT SHE WAS HAVING A HARD TIME BREATHING BUT SATURATING 100% ON COOL AEROSOL. PATIENT WAS SWITCHED BACK TO CPAP AND PATIENT CALMED DOWN AND RELAXED AFTER.
--- NOTE | 2017-06-21 17:22 | NUR ---
RT NOTE: AWAKE AND ALERT PATIENT RECEIVED TRACHED ON ESPRIT VENT. ALARMS VERIFIED AND AUDIBLE. SUCTIONED AND LAVAGED MODERATE-LARGE AMOUNT OF THICK EUBANKS SECRETION. VENT PLUGGED INTO RED OUTLET. AMBU BAG AT [facility]. @1338-PATIENT WAS PLACED ON COOL AEROSOL 40% @ 10LPM. @1650-PATIENT PLACED BACK ON CPAP EARLY DUE TO DISTRESS. ALARMS VERIFIED AND AUDIBLE. AMBU BAG AT [facility]. WILL CONTINUE TO MONITOR.
--- NOTE | 2017-06-21 18:36 | NUR ---
ENTERTAINMENT PRODUCTION PROFESSIONAL NOTE: DR. ANG CAME BY AND VERBALIZED THAT HE WILL SCHEDULE THE PATIENT FOR THE PERITONEAL DRAINAGE CATHETER REMOVAL BY FRIDAY (06/23/17). JESÚS FREDERICK, DAUGHTER WAS PRESENT AT THE BEDSIDE AND GAVE CONSENT FOR THE PROCEDURE.
--- NOTE | 2017-06-21 19:32 | NUR ---
MORTGAGE MANAGER NOTE: PATIENT IN BED, ASLEEP AND AROUSABLE W/ TACTILE STIMULI. ON CPAP NOW AND SATURATING WELL 100%. DAUGHTER PRESENT AT THE BEDSIDE. CALL LIGHT WITHIN REACH. NOT ON ANY FORM OF DISTRESS. REPORT GIVEN TO PM SHIFT NURSE FOR CONTINUITY OF CARE.
[2017-06-21 20:00] VITALS: BP 109/51
--- NOTE | 2017-06-21 20:00 | NUR ---
RN TEL INITIAL NOTE RECEIVED PT FROM AM SHIFT, MAINTAINED ON CPAP ORDERED, WELL JAMES, WITH COOL AEROSAL IN AM ,AOX2 NO C/O DISTRESS OR PAIN, DAUGHTER BY BED SIDE, WITH GTF RUNNING WELL JAMES NO RESIDUAL, WITH RCW PACEMAKER, PACING AT 80'S IV ACCESS SITES PATENT, PT CLEAN AND DRY WELL REPOSITIONED, WILL CONT TO MONITOR
[2017-06-22] VITALS: BP 121/51
[2017-06-22] MEDS: IPRATROPIUM NEB FS 0.5 MG/2.5 ML AMPUL.NEB NEB SCH ×4 (00:49→20:00)
[2017-06-22 04:00] VITALS: BP 121/51
[2017-06-22] MEDS: MIDODRINE HCL (5MG) 5 MG TABLET GT SCH ×3 (04:31→21:00)
[2017-06-22] MEDS: METOCLOPRAMIDE HCL 10 MG TABLET GT SCH ×3 (04:31→21:30)
[2017-06-22] MEDS: RENAL NOVASOURCE 1,000 ML BOTTLE GT PRN ×2 (04:35→17:30)
[2017-06-22] MEDS: BLOOD SUGAR DIAGNOSTIC 1 EACH STRIP IN SCH ×3 (05:18→17:31)
--- NOTE | 2017-06-22 06:57 | NUR ---
RN TEL CLOSING NOTE ENDORSED PT FROM AM SHIFT, MAINTAINED ON CPAP ORDERED, WELL JAMES, WITH COOL AEROSOL IN AM ,AOX2 NO C/O DISTRESS OR PAIN, DAUGHTER BY BED SIDE, WITH GTF RUNNING WELL JAMES NO RESIDUAL, WITH RCW PACEMAKER, PACING AT 80'S IV ACCESS SITES PATENT, PT CLEAN AND DRY WELL REPOSITIONED, WILL CONT TO MONITOR
[2017-06-22] MEDS: LACTULOSE 10 G/15 ML UDC (PYXIS) GT SCH (09:52)
[2017-06-22] MEDS: FOLIC ACID 1 MG TABLET GT SCH (09:54)
[2017-06-22] MEDS: LEVOTHYROXINE SODIUM 75 MCG TABLET GT SCH ×2 (09:54→21:28)
[2017-06-22] MEDS: HYDROGEL DRESSING 90 GM TUBE TP SCH (09:55)
[2017-06-22] MEDS: HEPARIN SODIUM, PORCINE 5000 UNITS/1 ML VIAL SQ SCH ×2 (12:00→21:00)
--- NOTE | 2017-06-22 12:00 | NUR ---
RN NOTES: PATIENT AGREED TO RECEIVE HEPARIN INJ
--- NOTE | 2017-06-22 12:07 | NUR ---
RN NOTES: PER DR CARR, GIVE HEPARIN AM DOSE,. HOLD PM DOSE FOR PLUERIX CATHETER REMOVAL TOMORROW
--- NOTE | 2017-06-22 19:30 | NUR ---
Received patient in the bed.No unusual signs or symptoms observed or reported,no signs of discomfort or distress.Daughter at bedside assisting with emotional support,no problems.
--- NOTE | 2017-06-22 19:35 | NUR ---
RN NOTES: PATIENT RESTING IN BED. NONLABORED BREATHING NOTED ON 10 L COOL AEROSOL. PATIENT AOX2. NONLABORED BREATHING NOTED. NO FACIAL GRIMACING. PLEURIX DRAINAGE CATHETER IN PLACE AND INTACT. VERIFIED WITH DR HANNA REMOVAL OF TOMORROW. GTUBE FEEDING RUNNING PER ORDERS. TOLERATING WELL. HAD X2 BOWEL MOVEMENTS. FAUSTO PICC LINE PATENT AND INTACT. RIGHT HAND GAUGE 20 PATENT AND INTACT. LLQ ABDOMINAL HD CATHETER WITH PIGTAILS PATENT AND INTACT. PATIENT STABLE THROUGHOUT SHIFT, TURNED AND REPOSITIONED EVERY 2HOURS. KEPT CLEAN AND DRY. WOUND CARE DONE. ENDORSED TO NEXT SHIFT
--- NOTE | 2017-06-22 23:00 | NUR ---
resting quietly,no problems
[2017-06-23] VITALS: BP_SYST 120
--- NOTE | 2017-06-23 00:10 | NUR ---
Vent alarming,conducted suctioning but none required.Alarmed a few more times with no suctioning required.Called RT and reported alarm which was taken care of
[2017-06-23] MEDS: BLOOD SUGAR DIAGNOSTIC 1 EACH STRIP IN SCH ×4 (00:43→17:19)
--- NOTE | 2017-06-23 00:54 | NUR ---
Seen an order to get consent for HD;informed the charge who looked at it and decided not to get one because patient has already received HD without one.
--- NOTE | 2017-06-23 01:20 | NUR ---
appeared cold asked if she would like a blanket she said yes.Place a blanket.Patient was sleep 5 minutes later.
[2017-06-23] MEDS: IPRATROPIUM NEB FS 0.5 MG/2.5 ML AMPUL.NEB NEB SCH ×4 (01:30→19:27)
[2017-06-23] MEDS: MIDODRINE HCL (5MG) 5 MG TABLET GT SCH ×3 (05:00→21:06)
[2017-06-23 05:23] VITALS: BP 103/46
[2017-06-23] MEDS: METOCLOPRAMIDE HCL 10 MG TABLET GT SCH ×3 (05:23→21:06)
--- NOTE | 2017-06-23 06:43 | NUR ---
family continue at bedside assisting with emotional support,no problems
--- NOTE | 2017-06-23 07:30 | NUR ---
BULLDOZER MECHANIC NOTE: RECEIVED PATIENT AWAKE W/ THE DAUGHTER PRESENT AT THE BEDSIDE. CURRENTLY RECEIVING HEMODIALYSIS. ON COOL AEROSOL AND SATURATING 100%. (L) UA PICC LINE NOTED INTACT AND PATENT. ON COMMERCIAL REAL ESTATE APPRAISER, V-PACING HR= 86. BED ALARM AND LOCKED AT ALL TIMES. CALL LIGHT WITHIN REACH. HEPARIN WILL BE HELD DUE TO THE POSSIBLE REMOVAL OF THE PERITONEAL DRAINAGE CATHETER TODAY. PATIENT AND DAUGHTER WAS AWARE.
[2017-06-23 07:38] LABS: CALCIUM, SERUM 8.4 mg/dL (8.5-10.1); CREATININE 3.5 mg/dL (0.6-1.3)
[2017-06-23 08:00] VITALS: BP 100/45
[2017-06-23] MEDS: FOLIC ACID 1 MG TABLET GT SCH (10:07)
[2017-06-23] MEDS: LACTULOSE 10 G/15 ML UDC (PYXIS) GT SCH (10:07)
[2017-06-23] MEDS: LEVOTHYROXINE SODIUM 75 MCG TABLET GT SCH ×2 (10:08→21:06)
[2017-06-23] MEDS: HYDROGEL DRESSING 90 GM TUBE TP SCH (10:08)
[2017-06-23] MEDS: HEPARIN SODIUM, PORCINE 5000 UNITS/1 ML VIAL SQ SCH ×2 (10:08→21:00)
[2017-06-23 12:00] VITALS: BP 108/51
[2017-06-23 16:00] VITALS: BP 108/57
[2017-06-23] MEDS: FLUCONAZOLE (100 MG) 100 MG TABLET PO SCH (17:19)
--- NOTE | 2017-06-23 19:30 | NUR ---
BODY WELDER INITIAL NOTE PT RECEIVED AWAKE IN BED WITH DAUGHTER AT BEDSIDE. HOB ELEVATED. TRACH WITH COOL AEROSOL AND SATURATING 98%. NONVERBAL BUT ABLE TO MOUTH WORDS TO DAUGHTER. IV FAUSTO PICC DRY AND PATENT. LEFT LOWER ABDOMEN HD CATH IN PLACE. LEFT LOWER ABDOMEN PLEURX SECURED IN PLACE WITH DRY DRESSING. ON ASPIRATION PRECAUTIONS. GTUBE FEEDING IN PLACE AND NO RESIDUALS NOTED. NO FACIAL GRIMACE NOTED. CALL LIGHT WITHIN REACH. WILL CONTINUE TO MONITOR.
--- NOTE | 2017-06-23 19:55 | NUR ---
FAMILY CASEWORKER NOTE: PATIENT AWAKE W/ THE DAUGHTER PRESENT AT THE BEDSIDE. ON COOL AEROSOL AND SATURATING 100%. (L) UA PICC LINE NOTED INTACT AND PATENT. ON PROJECT INTERN, V-PACING HR= 85. BED ALARM AND LOCKED AT ALL TIMES. CALL LIGHT WITHIN REACH. REPORT GIVEN TO PM SHIFT NURSE FOR CONTINUITY OF CARE AND RE: THE ORDER OF DR. HANNA FOR EGD IN AM.
[2017-06-23 20:00] VITALS: BP 103/51
[2017-06-24] VITALS (9 sets, daily range): BP systolic 90–158; BP diastolic 46–64
[2017-06-24] MEDS: BLOOD SUGAR DIAGNOSTIC 1 EACH STRIP IN SCH ×4 (00:17→16:51)
[2017-06-24] MEDS: IPRATROPIUM NEB FS 0.5 MG/2.5 ML AMPUL.NEB NEB SCH ×4 (01:16→20:19)
[2017-06-24] MEDS: METOCLOPRAMIDE HCL 10 MG TABLET GT SCH ×3 (05:00→22:06)
[2017-06-24] MEDS: MIDODRINE HCL (5MG) 5 MG TABLET GT SCH ×3 (05:00→22:07)
--- NOTE | 2017-06-24 07:17 | NUR ---
LACE MENDER CLOSING NOTE REMAINED STABLE DURING SHIFT. DAUGHTER REMAINS AT BEDSIDE. CONSENTS SIGNED FOR PROCEDURE TODAY. NPO OF MIDNIGHT. HOB ELEVATED. ON ASPIRATION PRECAUTIONS. GTUBE CLAMPED AND CLEAN. TRACH IN PLACE AND SATURATING WELL. NO DISCOMFORT NOTED. ALL NEEDS ATTENDED TO. KEPT CLEAN AND DRY. SUCTIONED NEEDED. WILL ENDORSE TO NEXT SHIFT FOR CONTINUITY OF CARE.
--- NOTE | 2017-06-24 07:21 | NUR ---
RT NOTE: AWAKE AND ALERT PATIENT PLACED ON COOL AEROSOL 40% @10 LPM. TOLERATING WELL. WILL CONTINUE TO MONITOR.
--- NOTE | 2017-06-24 07:30 | NUR ---
MS/RN Patient received Patient received from shift commander. Daughter at bedside and aware of plan of care for day. In no distress at this time, saturation 100% on 8-10 liters via trach. Safety measures in place, bed in low setting, side rails X3 in upright position. Will continue to monitor and ensure safety.
[2017-06-24] MEDS ORDERED: FENTANYL PF 100MCG/2ML AMPUL ONE (08:14)
[2017-06-24] MEDS ORDERED: MIDAZOLAM HCL 2 MG/2ML VIAL ONE (08:14)
[2017-06-24] MEDS ORDERED: ROCURONIUM BROMIDE 50 MG/5 ML ONE (08:15)
--- NOTE | 2017-06-24 08:15 | NUR ---
MS/RN OR Patient off floor at this time in operating room for EGD and possible removal of drain. Medical record with patient.
[2017-06-24] MEDS: FLUCONAZOLE (100 MG) 100 MG TABLET PO SCH (08:24)
[2017-06-24] MEDS: LEVOTHYROXINE SODIUM 75 MCG TABLET GT SCH ×2 (08:24→22:06)
[2017-06-24] MEDS: FOLIC ACID 1 MG TABLET GT SCH (08:24)
[2017-06-24] MEDS: LACTULOSE 10 G/15 ML UDC (PYXIS) GT SCH (08:24)
[2017-06-24] MEDS: HEPARIN SODIUM, PORCINE 5000 UNITS/1 ML VIAL SQ SCH (08:25)
[2017-06-24] MEDS ORDERED: LIDOCAINE 1%-EPI 1:100,000 20 ML VIAL TP ONE (08:32)
[2017-06-24] MEDS ORDERED: BACITRACIN OPHTH OINT 3.5 GM TUBE ONE (09:12)
--- NOTE | 2017-06-24 10:32 | NUR ---
MS/RN Back from OR Patient back in room following removal of pleurx drain. Dressing to left side of abdomen clean and dry, no oozing noted. Vital signs upon return stable. Per Dr Alcocer, may resume pre op orders. Skin tear noted to left side chest wall upon return from surgery. Wound cleansed with normal saline, xeroform and mepilex applied. Tara (wound care nurse) aware.
[2017-06-24] MEDS: RENAL NOVASOURCE 1,000 ML BOTTLE GT PRN (11:11)
[2017-06-24] MEDS: HYDROGEL DRESSING 90 GM TUBE TP SCH (11:11)
--- NOTE | 2017-06-24 11:46 | NUR ---
MS/child care counselor Wound care performed as ordered.
--- NOTE | 2017-06-24 11:58 | NUR ---
MS/RN S/B Dr Russell Seen by Dr Russell - HDX ordered for tomorrow morning.
--- NOTE | 2017-06-24 15:00 | NUR ---
MS/RN S/B Fabio Beyer Seen by Fabio Beyer - PT ordered for range of motion exercises.
[2017-06-24] MEDS: ACETAMINOPHEN 325 MG TABLET PO PRN (15:22)
--- NOTE | 2017-06-24 18:35 | NUR ---
MS/RN End note Patient remains in stable condition. Daughter at bedside, updated as to plan of care. Will continue to monitor and endorse to film processing shift supervisor.
--- NOTE | 2017-06-24 20:00 | NUR ---
TELE 1 RN NOTE PT IN BED AWAKE. A/O X 2, IMANI SPEAKING. NON VERBAL BUT UNDERSTAND IMANI AND COMUNICATE WITH FACIAL AND HAND GESTURE. GTF INFUSING WELL 30 ML/HR, 0 ML RESIDUAL NOTED. KEPT HOB ELEVATED. FAUSTO PICC LINE INTACT AND PATENT TKO. DTR AT BED SIDE. SIDE RIALS UP X 3 AND CALL LIGHT WITHIN REACH. VSS. CONTINUE TO MONITOR HER.
[2017-06-24] MEDS: HYDROCODONE/APAP 5/325MG 1 EACH TABLET PO PRN (22:17)
[2017-06-25] VITALS: BP 107/56
--- NOTE | 2017-06-25 | NUR ---
TELE 1 RN NOTE PT IN BED ASLEEP, AROUSABLE. NO DISTRESS OR DISCOMFORT NOTED. GTF INFUSING WELL, 0 ML RESIDUAL NOTED. KEPT HER DRY AND CLEAN. ALL NEEDS ATTENDED.
[2017-06-25] MEDS: BLOOD SUGAR DIAGNOSTIC 1 EACH STRIP IN SCH ×4 (00:11→17:19)
[2017-06-25] MEDS: IPRATROPIUM NEB FS 0.5 MG/2.5 ML AMPUL.NEB NEB SCH ×4 (01:41→20:22)
[2017-06-25 04:00] VITALS: BP 113/53
[2017-06-25] MEDS: METOCLOPRAMIDE HCL 10 MG TABLET GT SCH ×3 (05:17→20:54)
[2017-06-25] MEDS: MIDODRINE HCL (5MG) 5 MG TABLET GT SCH ×3 (05:17→21:00)
--- NOTE | 2017-06-25 06:40 | NUR ---
TELE 1 RN NOTE PT IN BED ASLEEP, EASILY AROUSABLE. NO DISTRESS OR DISCOMFORT NOTED. DENIES PAIN. ON TELE UNCONTROLLED VPACING HR IN 90. DRESSING ON LLQ I/C/D. BED BATH GIVEN. KEPT HER DRY AND CLEAN. REPOSITION HER Q2H, SIDE RAILS UP X 3 AND CALL LIGHT WITHIN REACH. WILL ENDORSE TO DAY SHIFT NURSE FOR CONTINUE TO CARE.
[2017-06-25 07:23] LABS: BASOPHILS % (AUTO) 0.4 % (0.0-2.0); EOSINOPHILS # (AUTO) 0.2 /CMM (0.0-0.7); EOSINOPHILS % (AUTO) 1.8 % (0.0-6.0); HEMATOCRIT 26 % (33-45); HEMOGLOBIN 8.2 g/dL (11.5-14.8); LYMPHOCYTES # (AUTO) 1.4 /CMM (0.8-4.8); LYMPHOCYTES % (AUTO) 13.6 % (20.0-44.0); MEAN CORPUSCULAR HEMOGLOBIN 31 PG (26.0-33.0); MEAN CORPUSCULAR HGB CONC 32 g/dl (31.0-36.0); MEAN CORPUSCULAR VOLUME 98 fL (82-100); MONOCYTES # (AUTO) 1.6 /CMM (0.1-1.30); MONOCYTES % (AUTO) 15.7 % (2.0-12.0); NEUTROPHILS # (AUTO) 7.1 /CMM (1.8-8.9); NEUTROPHILS % (AUTO) 68.5 % (43.0-81.0); PLATELET COUNT (AUTO) 101 /CMM (150-450); RED BLOOD CELL COUNT(AUTO) 2.62 MIL/uL (4.0-5.2); WHITE BLOOD COUNT (AUTO) 10.4 K/uL (4.3-11.0)
[2017-06-25 07:31] LABS: CALCIUM, SERUM 8.5 mg/dL (8.5-10.1); CREATININE 3.6 mg/dL (0.6-1.3); POTASSIUM 3.5 mmol/L (3.5-5.1)
[2017-06-25 08:00] VITALS: BP 93/50
[2017-06-25] MEDS: FOLIC ACID 1 MG TABLET GT SCH (08:32)
[2017-06-25] MEDS: LEVOTHYROXINE SODIUM 75 MCG TABLET GT SCH ×2 (08:32→20:54)
[2017-06-25] MEDS: HYDROGEL DRESSING 90 GM TUBE TP SCH (08:32)
[2017-06-25] MEDS: FLUCONAZOLE (100 MG) 100 MG TABLET PO SCH (08:32)
[2017-06-25] MEDS: LACTULOSE 10 G/15 ML UDC (PYXIS) GT SCH ×2 (08:32→08:48)
[2017-06-25] MEDS: ACETAMINOPHEN 325 MG TABLET PO PRN (08:41)
--- NOTE | 2017-06-25 08:48 | NUR ---
LAURE RONDON NOTE PT IS HAVING HD TODAY WILL HOLD LACTULOSE POTASSIUM 4.2. REPORTED TO AMID DILMA NURSE. Addendum: 06/25/17 at 0852 by ERNIE SERRANO RN AMEND POTASSIUM IS 3.5 TODAY.
[2017-06-25] MEDS ORDERED: ALBUMIN 25% 25 GM in PREMIX 1 EA IV ONE (11:30)
[2017-06-25 12:00] VITALS: BP 100/46
[2017-06-25 16:00] VITALS: BP 91/48
[2017-06-25] MEDS: HYDROCODONE/APAP 5/325MG 1 EACH TABLET PO PRN (16:38)
[2017-06-25] MEDS: VANCOMYCIN 500 MG in IV D5W 100 ML IV PRN (18:47)
--- NOTE | 2017-06-25 19:30 | NUR ---
Received patient in the bed.No unusual signs or symptoms observed or reported,no signs of discomfort or distress.Vital signs taken,all are in the normal range,except for BP 102/48.On tele,V-pacing at 96 bpm.Nova source attached and infusing via a GT at 30 cc/hr,residual is 275 cc,holding feeding for an hour.Male family member at bedside,assisting with emotional support,no problems.
[2017-06-25 20:00] VITALS: BP 102/48
--- NOTE | 2017-06-25 22:10 | NUR ---
Son informed me that he was going to his car to get some rest,go him an additional chair so he could get comfortable,no problems
--- NOTE | 2017-06-26 00:05 | NUR ---
Checked residual,no change 275 cc.continue feeding on hold;son at bedside,no problems
--- NOTE | 2017-06-26 00:15 | NUR ---
BS is 134
[2017-06-26 01:59] VITALS: BP 95/47
[2017-06-26] MEDS: IPRATROPIUM NEB FS 0.5 MG/2.5 ML AMPUL.NEB NEB SCH ×4 (02:00→19:55)
--- NOTE | 2017-06-26 02:18 | NUR ---
Gave report to ALCON Kong,no problems
--- NOTE | 2017-06-26 03:00 | NUR ---
RN NOTES Received patient on the ventilator with tracheostomy on CPAP mode.Awake,alert,follows commands,seems to understand ,communicates through mouthtalking.Not in distress.Feeding on hold due to high residuals. PICC line via FAUSTO,Hemodialysis catheter via LLQ of abdomen.Comfort care done,needs [id number] AM care done,skin intact.
[2017-06-26 04:00] VITALS: BP 89/47
--- NOTE | 2017-06-26 04:09 | NUR ---
RT NOTE PATIENT RECEIVED ON MECHANICAL VENTILATION. VENT PLUGGED INTO RED OUTLET. ANGELAU BAG @ HOB. TRACH SECURED AND PATENT AT ALL TIMES. SX DONE. TX GIVEN, NO ADVERSE REACTIONS NOTED. PATIENT STABLE. MONITORED CLOSELY. ALARMS ON AND AUDIBLE. Addendum: 06/26/17 at 0409 by ARIEL PETTY RT Amended: Links added.
[2017-06-26] MEDS: METOCLOPRAMIDE HCL 10 MG TABLET GT SCH ×3 (04:59→21:34)
[2017-06-26] MEDS: MIDODRINE HCL (5MG) 5 MG TABLET GT SCH ×3 (04:59→21:35)
[2017-06-26] MEDS: BLOOD SUGAR DIAGNOSTIC 1 EACH STRIP IN SCH ×5 (05:59→23:55)
[2017-06-26 06:43] LABS: CALCIUM, SERUM 8.6 mg/dL (8.5-10.1); CREATININE 2.9 mg/dL (0.6-1.3); POTASSIUM 4.1 mmol/L (3.5-5.1)
--- NOTE | 2017-06-26 07:00 | NUR ---
RN NOTES Remains stable on the ventilator,awake,alert.Report given to
--- NOTE | 2017-06-26 07:47 | NUR ---
RT NOTE AWAKE AND ALERT PATIENT PLACED ON COOL AEROSOL ORDERED. SP02 100% WITH NO SIGN OF RESPIRATORY DISTRESS ON 40%. WILL CONTINUE TO MONITOR CLOSELY AND PROVIDE RESPIRATORY CARE.
[2017-06-26 08:00] VITALS: BP 89/43
[2017-06-26] MEDS: FLUCONAZOLE (100 MG) 100 MG TABLET PO SCH (08:53)
[2017-06-26] MEDS: LEVOTHYROXINE SODIUM 75 MCG TABLET GT SCH ×2 (08:54→21:34)
[2017-06-26] MEDS: LACTULOSE 10 G/15 ML UDC (PYXIS) GT SCH (08:54)
[2017-06-26] MEDS: FOLIC ACID 1 MG TABLET GT SCH (08:54)
[2017-06-26] MEDS: HYDROGEL DRESSING 90 GM TUBE TP SCH (08:57)
[2017-06-26] MEDS: RENAL NOVASOURCE 1,000 ML BOTTLE GT PRN (10:13)
[2017-06-26 12:00] VITALS: BP_SYST 103; BP_SYST 95; BP_DIAS 51
--- NOTE | 2017-06-26 12:00 | NUR ---
RN NOTE PT WAS PLACED ON COOL AEROSOL, TOLERATED WELL, THEN RT ATTEMPTED TO CAP TRACH, BUT PT DID NOT TOLERATE WELL, SHE BEGAN COUGHING A LOT. AND PT WENT BACK TO COOL AEROSOL. DR VELAZQUEZ NOTIFIED.
[2017-06-26 16:00] VITALS: BP 95/51
--- NOTE | 2017-06-26 17:22 | NUR ---
RT NOTE TRACH CAPPING PT WAS ONLY ABLE TO TOLERATE 1 HOUR OF TRACH CAPPING T/O SHIFT DUE TO INCREASED WOB AND POOR SELF AIRWAY CLEARANCE. PT PLACED BACK ON COOL AEROSOL WITH NO SIGN OF RESPIRATORY DISTRESS ON 40% C/A. WILL CONTINUE TO MONITOR T/O SHIFT.
--- NOTE | 2017-06-26 19:00 | NUR ---
RN NOTE PT HAD BREAKFAST AND LUNCH, TUBE FEEDING RAN ONLY FOR 2 HR EARLIER IN AM, PT HAD RESIDUALS 300 AT 1200 AND 220 ML AT 1800, BEATER OUT LEVELING MACHINE CHUCK IS AWARE.
[2017-06-26] MEDS: ACETAMINOPHEN 325 MG TABLET PO PRN (19:21)
--- NOTE | 2017-06-26 19:39 | NUR ---
RN TEL INITIAL NOTES RECEIVED PT ON C/A JAMES WELL, NO C/O SOB OR PAIN, STARTED ON TRACH CAP TRIALS, NOT ABLE TO JAMES, PLACED BACK ON C/A. ENDORSED WITH GTF OFF WITH 200 CC RESIDUAL ALCON WOODS [employer]OL MAINFRAME DEVELOPER, AWAITING CALL BACK, PT STARTED ON PO MEALS B'L'D, WELL JAMES, BS 65 NO CHANGE IN PT CONDITION ALERT WITH SON BY BED SIDE, WILL CONT TO MONITOR RESIDUAL, VS STABLE AT THIS TIME.
--- NOTE | 2017-06-26 21:45 | NUR ---
GTF RESUMED AT 2144, CHECKED FOR RESIDUAL ZERO, WILL CONT TO MONITOR, ASPIRATION PRECAUTION, HOB ELEVATED, NOTED WITH ORDER FROM AMADA VICE PRESIDENT OF INSTRUCTION FOR KUB, D/T RESIDUAL OF 200 CC.
[2017-06-26] MEDS: HYDROCODONE/APAP 5/325MG 1 EACH TABLET PO PRN (21:56)
[2017-06-26 22:14] VITALS: BP 100/53
--- NOTE | 2017-06-26 23:46 | NUR ---
PT'S FAMILY REFUSED NOC CPAP. PT RESTING COMFORTABLE. HR 90 SPO2 100% ON COOL AEROSOL. WILL CONTINUE TO MONITOR. ALCON WESTBROOK AWARE. Addendum: 06/26/17 at 2348 by JENI MA RT Amended: Links added.
[2017-06-27] VITALS: BP 92/51
[2017-06-27] MEDS: IPRATROPIUM NEB FS 0.5 MG/2.5 ML AMPUL.NEB NEB SCH ×4 (01:36→19:24)
[2017-06-27 04:00] VITALS: BP 102/60
[2017-06-27] MEDS: MIDODRINE HCL (5MG) 5 MG TABLET GT SCH ×2 (04:38→13:01)
[2017-06-27] MEDS: METOCLOPRAMIDE HCL 10 MG TABLET GT SCH ×2 (04:38→13:01)
[2017-06-27] MEDS: RENAL NOVASOURCE 1,000 ML BOTTLE GT PRN (04:43)
[2017-06-27] MEDS: BLOOD SUGAR DIAGNOSTIC 1 EACH STRIP IN SCH ×3 (05:20→18:15)
[2017-06-27 06:39] LABS: BASOPHILS % (AUTO) 0.5 % (0.0-2.0); CREATININE 3.7 mg/dL (0.6-1.3); EOSINOPHILS # (AUTO) 0.2 /CMM (0.0-0.7); EOSINOPHILS % (AUTO) 1.8 % (0.0-6.0); HEMATOCRIT 25 % (33-45); HEMOGLOBIN 7.9 g/dL (11.5-14.8); LYMPHOCYTES # (AUTO) 1.7 /CMM (0.8-4.8); LYMPHOCYTES % (AUTO) 18.9 % (20.0-44.0); MEAN CORPUSCULAR HEMOGLOBIN 31 PG (26.0-33.0); MEAN CORPUSCULAR HGB CONC 32 g/dl (31.0-36.0); MEAN CORPUSCULAR VOLUME 97 fL (82-100); MONOCYTES # (AUTO) 1.6 /CMM (0.1-1.30); MONOCYTES % (AUTO) 18.4 % (2.0-12.0); NEUTROPHILS # (AUTO) 5.4 /CMM (1.8-8.9); NEUTROPHILS % (AUTO) 60.4 % (43.0-81.0); PLATELET COUNT (AUTO) 96 /CMM (150-450); POTASSIUM 4.2 mmol/L (3.5-5.1); RDW COEFFICIENT OF VARIATION 19.9 (11.5-15.0); RED BLOOD CELL COUNT(AUTO) 2.53 MIL/uL (4.0-5.2); WHITE BLOOD COUNT (AUTO) 8.9 K/uL (4.3-11.0)
--- NOTE | 2017-06-27 06:42 | NUR ---
RN TEL CLOSING NOTES ENDORSED PT ON C/A JAMES WELL, NO C/O SOB OR PAIN, STARTED ON TRACH CAP TRIALS, NOT ABLE TO JAMES, PLACED BACK ON C/A. ENDORSED WITH GTF RESIDUAL ZERO, WELL JAMES, AWAITING CALL BACK, PT STARTED ON PO MEALS B'L'D, WELL JAMES, BS 65 NO CHANGE IN PT CONDITION ALERT WITH SON BY BED SIDE, WILL CONT TO MONITOR RESIDUAL, VS STABLE AT THIS TIME.
[2017-06-27 08:00] VITALS: BP 85/41
--- NOTE | 2017-06-27 08:00 | NUR ---
TELE1/RN AM SHIFT INITIAL NOTES RECEIVED PT AWAKE IN BED, NO ACUTE DISTRESS NOTED. A/O X 2, SPEAKS IMANI ONLY, NOT ABLE TO MAKE NEEDS KNOWN BY GESTURING. ON COOL AEROSOL WITH 40% FIO2, SATURATING @ 100%, LUNG SOUNDS DIMINISHED, SUCTIONED FOR AIRWAY CLEARANCE, RESPIRATIONS EVEN & UNLABORED. ON TELE MONITORING, V-PACING @ 90. ON GOING DIALYSIS TX, GT FEEDING ON GOING, NO GASTRIC RESIDUAL NOTED, PATENT. PICC LINE NOTED WITH NO BLOOD RETURN BUT ABLE TO FLUSHED. PT IS COMFORTABLE, SCHEDULED AM MEDS TO BE GIVEN. CL WITHIN REACHED AND SAFETY MAINTAINED. ON GOING MONITORING.
[2017-06-27 08:38] LABS: EOSINOPHILS % (MANUAL) 2 % (0-4); LYMPHOCYTES % (MANUAL) 15 % (16-48); MONOCYTES % (MANUAL) 21 % (0-11.0); NEUTROPHILS % (MANUAL) 62 (42-76)
[2017-06-27 08:45] VITALS: BP 94/49
--- NOTE | 2017-06-27 08:45 | NUR ---
TELE1/RN POST DIALYSIS DIALYSIS TX COMPLETED, NO FLUID REMOVED, BP 94/49. PT TOLERATED TX. MONITORING CONTINUED.
[2017-06-27] MEDS: Z GUARD REMEDY 2 OZ OINT TP PRN (09:06)
[2017-06-27] MEDS: LACTULOSE 10 G/15 ML UDC (PYXIS) GT SCH (09:06)
[2017-06-27] MEDS: FOLIC ACID 1 MG TABLET GT SCH (09:07)
[2017-06-27] MEDS: LEVOTHYROXINE SODIUM 75 MCG TABLET GT SCH (09:07)
[2017-06-27] MEDS: FLUCONAZOLE (100 MG) 100 MG TABLET PO SCH (09:07)
[2017-06-27] MEDS: HYDROGEL DRESSING 90 GM TUBE TP SCH (09:07)
[2017-06-27] MEDS ORDERED: IV NS 0.9% 250 ML BAG IV ONE (10:00)
[2017-06-27] MEDS: VANCOMYCIN 500 MG in IV D5W 100 ML IV PRN (10:03)
[2017-06-27 12:00] VITALS: BP 95/51
[2017-06-27 16:00] VITALS: BP 107/56
--- NOTE | 2017-06-27 17:00 | NUR ---
TELE1/RN AFTERNOON ROUNDS PM CARE PROVIDED. NO CHANGE OF CONDITION.
--- NOTE | 2017-06-27 17:30 | NUR ---
TELE1/RN REPORT - SN[facility] REPORT GIVEN DIVYA [facility] OF [facility]. PT SCHEDULED TO BE PICKED-UP @ 1914.
--- NOTE | 2017-06-27 19:58 | NUR ---
TELE1/RN REPORT - TRANSPORT REPORT GIVEN TO TRANSPORT PERSONNEL. PT LEFT UNIT IN STABLE CONDITION VIA GURNEY. PICC LINE WAS DISCONTINUED, PRESSURE DRESSING APPLIED, NO S/S OF INFECTION.
== END 2017-06-27 19:55 | DRG 853 ==
LOC: ER 21:34 → ICU 06-17 02:21 → TELE-TD 06-19 18:46 → TELE1 06-20 10:09
PROVIDERS: ADMIT Internal Medicine; ATTEND Internal Medicine
PROC: 5A1955Z Respiratory Ventilation, Greater than 96 Consecutive Hours (ICD-10-PCS; principal; 2017-06-17)
PROC: B548ZZA Ultrasonography of Superior Vena Cava, Guidance (ICD-10-PCS; principal; 2017-06-17)
PROC: 02HV33Z Insertion of Infusion Device into Superior Vena Cava, Percutaneous Approach (ICD-10-PCS; principal; 2017-06-17)
PROC: 0WPG03Z Removal of Infusion Device from Peritoneal Cavity, Open Approach (ICD-10-PCS; 2017-06-24)
DX: A41.9 Sepsis, unspecified organism (principal); I21.4 Non-ST elevation (NSTEMI) myocardial infarction; J96.21 Acute and chronic respiratory failure with hypoxia; R65.21 Severe sepsis with septic shock; Z99.11 Dependence on respirator [ventilator] status; K65.9 Peritonitis, unspecified; G92 Toxic encephalopathy; I13.2 Hypertensive heart and chronic kidney disease with heart failure and with stage 5 chronic kidney disease, or end stage renal disease; N18.6 End stage renal disease; I50.23 Acute on chronic systolic (congestive) heart failure; J96.22 Acute and chronic respiratory failure with hypercapnia; R18.8 Other ascites; Z93.0 Tracheostomy status; I27.20 Pulmonary hypertension, unspecified; Z99.2 Dependence on renal dialysis; Z93.1 Gastrostomy status; R13.10 Dysphagia, unspecified; Z95.2 Presence of prosthetic heart valve; I48.91 Unspecified atrial fibrillation; E87.5 Hyperkalemia; I25.2 Old myocardial infarction; E11.22 Type 2 diabetes mellitus with diabetic chronic kidney disease; D63.8 Anemia in other chronic diseases classified elsewhere; Z88.8 Allergy status to other drugs, medicaments and biological substances; Z79.4 Long term (current) use of insulin; Z79.899 Other long term (current) drug therapy; G90.8 Other disorders of autonomic nervous system; M85.9 Disorder of bone density and structure, unspecified
CPT/HCPCS: 31720; 36415; 36569; 36600; 71045-TC; 74018; 80048-TC; 80053-TC; 80076-TC; 80202-TC; 82728-TC; 82803-TC; 82962-TC; 83605-TC; 83735-TC; 83880; 84100-TC; 84484-TC; 85025-TC; 85730-TC; 86140-TC; 87040-TC; 87070-TC; 87081-TC; 88300-TC; 90935-TC; 92526; 92611-TC; 94002-TC; 94003-TC; 94640-TC; 94664-TC; 94760-TC; 94762-TC; 99082-TC; A4216; A4217; A4606; A4623; A6248; A6253; A6402; A6403; A7526; C1751; J0885; J1644; J1720; J2250; J2543; J3010; J3370; J3490; J7030; J7040; J7050; J7060; J8597; L8501; P9047; Z7610